=== PATIENT | male | born 1970 | race Caucasian/White ===

== ENCOUNTER 2016-11-07 12:10 | Emergency (ER) | payer BC, OTHER ==
[2016-11-07] MEDS ORDERED: Ibuprofen TAB* 600 MG PO ONE (13:41)
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
[2016-11-07 14:44] VITALS: BP 129/70
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
== END 2016-11-07 14:43 | disposition home or self-care (01) ==
LOC: ED 12:10
DX: S06.0X0A Concussion without loss of consciousness, initial encounter (principal); V43.52XA Car driver injured in collision with other type car in traffic accident, initial encounter; Y92.410 Unspecified street and highway as the place of occurrence of the external cause; E78.00 Pure hypercholesterolemia, unspecified; I38 Endocarditis, valve unspecified; I20.9 Angina pectoris, unspecified; F41.0 Panic disorder [episodic paroxysmal anxiety]; Z87.891 Personal history of nicotine dependence
CPT/HCPCS: 70450; 99282; A9270-GY

== ENCOUNTER 2018-05-18 22:25 | Inpatient (IN) | payer BC ==
--- NOTE | 2018-05-18 22:41 | ED ---
Substance Abuse/Use - HPI Summary HPI Summary: LEVEL 5 CAVEAT: HPI LIMITED DUE TO PATIENT CONDITION, EXTREMIS. A 47 y/o M presents to ED s/p suspected OD onset [employer]. Per EMS: On scene, pt was in prone position with emesis present and slow respirations; they gave him 2mg of Narcan which had minimal effect; another 2mg Narcan IV, and resp rate improved; respiratory rate crashed again en route; pupils are constricted; pt told EMS he took Demerol. Per father: patient appeared at baseline at 1630; at 1840, patient was speaking to father and not making sense but said he was going to sleep; at 1930, he found patient unresponsive on floor, it appeared that pt had vomited and had a bloody nose. Father says patient had been off opiods since 2008 and is on suboxone; he relapsed with cocaine 1.5 years ago; pt attends NA meetings 4x a week. Pt took a Klonopin pill today. At bedside, patient slurred that he is drunk and high otherwise, he is incoherent. PMHx includes aortic valve replacement in Nov 2017; sleep apnea; substance abuse. Neg DM. He sees Dr. Loyd, cardiology. ED provider met EMS and patient upon arrival and was taken to room 14. - History Of Current Complaint Stated Complaint: OVERDOSE PER EMS Hx Obtained From: Family/It Security Consulting Director - father, EMS, Medical Records Hx From Patient Unobtainable Due To: Extremis Associated Signs And Symptoms: Vomiting, Other: - pos: epistaxis - Allergies/Home Medications Allergies/Adverse Reactions: Allergies Allergy/AdvReac Type Severity Reaction Status Date / Time No Known Allergies Allergy Verified 06/25/17 10:11 PMH/Surg Hx/FS Hx/Imm Hx Previously Healthy: No Endocrine/Hematology History: Denies: Hx Diabetes Cardiovascular History: Reports: Hx Angina, Hx Hypercholesterolemia, Hx Valvular Heart Disease Denies: Hx Coronary Artery Disease, Hx Hypertension, Hx Myocardial Infarction , Hx Pacemaker/ICD Respiratory History: Denies: Hx Asthma, Hx Chronic Obstructive Pulmonary Disease (COPD) Sensory History: Denies: Hx Hearing Aid Psychiatric History: Reports: Hx Panic Disorder - ANXIETY STATES CAN HANDLE THE MRI Infectious Disease History: Reports: Hx Shingles - Family History Family History: multiple myeloma, diverticulosis - Social History Occupation: Unemployed Lives: With Family Alcohol Use: None Hx Substance Use: Yes Substance Use Type: Reports: Cocaine Hx Tobacco Use: Yes Smoking Status (MU): Former Smoker Type: Cigarettes Review of Systems - ROS Summary Review of Systems Summary: LEVEL 5 CAVEAT: HPI LIMITED DUE TO PATIENT CONDITION, EXTREMIS. Positive: Epistaxis Positive: Vomiting All Other Systems Reviewed And Are Negative: No Physical Exam - Summary Physical Exam Summary: Appearance: Somewhat agitated, Well-nourished, Mild respiratory distress. Skin: Warm, dry, no obvious rash Eyes: sclera anicteric, no conjunctival pallor, pupils are pinpoint ENT: mucous membranes moist, pharynx appears normal Neck: Supple, nontender Respiratory: Clear to auscultation, mild respiratory distress Cardiovascular: Normal S1, S2. No murmurs. Normal distal pulses in tibial and radial bilaterally. Abdomen: Soft, nontender, normal active bowel sounds present Musculoskeletal: Normal, Strength/ROM Intact Neurological: awake and alert but disoriented, mentation is normal, can follow simple commands. Inconsistent responses to questions. Otherwise no focal neuro deficits noted. Psychiatric: affect is normal, does not appear anxious or depressed Triage Information Reviewed: Yes Vital Signs Reviewed: Yes Diagnostics - Laboratory Result Diagrams: 05/18/18 22:38 05/18/18 22:38 Lab Statement: Any lab studies that have been ordered have been reviewed, and results considered in the medical decision making process. - Radiology CXR Radiology Interpretation Completed By: ED Physician Summary of Radiographic Findings: Status-post sternotomy, otherwise no acute findings. - CT Brain CT CT Interpretation Completed By: Radiologist Summary of CT Findings: IMPRESSION: 1. No acute intracranial abnormality. 2. Sinus mucosal disease. ED provider has reviewed this report. C-SPINE CT Interpretation Completed By: Radiologist Summary of CT Findings: IMPRESSION: 1. No acute findings. 2. Multilevel degenerative spondylosis, greatest at C5-6 level with mild spinal stenosis and mild bilateral neural foraminal narrowing. Moderate right neuroforamina narrowing at C6-7 level. ED provider has reviewed this report. - EKG 2257 Cardiac Rate: Tachycardia - 100 bpm EKG Rhythm: Sinus Tachycardia Summary of EKG Findings: Nonspecific IVCD; nonspecific T abnormalities in lateral leads Re-Evaluation - Re-Evaluation 1 Re-Evaluation Time: 00:07 Change: Unchanged Comment: Pt has some midline tenderness to neck will CT. GCS: 15. Course/Dx - Course Course Of Treatment: Pt is a 47 y/o M found unresponsive by father at 1930, suspected opiod OD, vomiting, epistaxis and poor respirations. Pt responded to 4mg Narcan given en route by EMS. Father says pt appeared at baseline at 1630. Soc Hx includes opiod abuse prior to 2008, on suboxone currently, prior cocaine use 1.5 years ago. Pt took a Klonopin pill today and told EMS he took Demerol. Aortic valve replacement in Nov 2017. Critical lab values: lactic acid: 7.9, troponin: 0.07. EKG shows Sinus tachy at 100bpm; Nonspecific IVCD; nonspecific T abnormalities in lateral leads. Consulted with Dr. Doll, hospitalist, who will admit patient. - Diagnoses Provider Diagnoses: Toxic encephalopathy, Opioid overdose - Critical Care Time Critical Care Time: 30-74 min Discharge - Sign-Out/Discharge Documenting (check all that apply): Patient Departure - ADMIT Patient Received Moderate/Deep Sedation with Procedure: No - Discharge Plan Condition: Critical Disposition: ADMITTED TO [facility] - Billing Disposition and Condition Condition: CRITICAL Disposition: Admitted to [facility] - Attestation Statements Document Initiated by Pardeepibe: Yes Documenting Scribe: Marycruz Simons Provider For Whom Scribe is Documenting (Include Credential): Dr. Fernando Posada MD Scribe Attestation: Marycruz Willis, scribed for Dr. Fernando Posada MD on 05/19/18 at 0546. Scribe Documentation Reviewed: Yes Provider Attestation: The documentation as recorded by the Marycruz tapia accurately reflects the service I personally performed and the decisions made by me, Dr. Fernando Posada MD Status of Scribe Document: Viewed
[2018-05-18] MEDS: NS 0.9% 1000 ML** 2,000 ML IV ONE ×4 (22:47→23:45)
[2018-05-18 23:01] LABS: Hematocrit 45 % (36-46); Hemoglobin 14.8 g/dL (14.0-18.0); Mean Corpuscular HGB Conc 33 g/dL (31-36); Mean Corpuscular Hemoglobin 30 pg (27-31); Mean Corpuscular Volume 89 fL (80-94); Mean Platelet Volume 8.4 fL (7.4-10.4); Platelet Count 180 10^3/uL (150-450); Red Blood Count 4.99 10^6 /uL (4.18-5.48); Red Cell Distribution Width 16 % (10.5-15); White Blood Count 24.5 10^3/uL (3.5-10.8)
[2018-05-18 23:16] LABS: Acetaminophen < 15 mcg/mL; Alcohol < 10 mg/dL (<10)
[2018-05-18 23:17] LABS: ALT 61 U/L (7-52); AST 56 U/L (13-39); Albumin 4.8 g/dL (3.2-5.2); Albumin/Globulin Ratio 1.8 (1-3); Alkaline Phosphatase 78 U/L (34-104); Anion Gap 19 mmol/L (2-11); BUN/Creatinine Ratio 8.8 (8-20); Blood Urea Nitrogen 18 mg/dL (6-24); CO2 Carbon Dioxide 21 mmol/L (22-32); Calcium 9.1 mg/dL (8.6-10.3); Chloride 102 mmol/L (101-111); EGFR African American 42.5 (>60); EGFR Non-African American 35.1 (>60); Globulin 2.7 g/dL (2-4); Glucose 312 mg/dL (70-100); Potassium 4.8 mmol/L (3.5-5.0); Sodium 142 mmol/L (135-145); Total Protein 7.5 g/dL (6.4-8.9)
[2018-05-18 23:21] LABS: Troponin I 0.07 ng/mL (<0.04)
[2018-05-18 23:24] LABS: Immature Granulocytes 12 % (0-9); Lymphocytes % 12 %; Monocytes % 6 %; Neutrophil % 70 %
[2018-05-18 23:27] LABS: ABS Neutrophils 20.1 10^3/ul (1.5-7.7)
--- OUTSIDE RECORDS SUMMARY | 2018-05-18 23:44 | XMS REPORT | Continuity of Care Document ---
:1970 External Reference #:[id number] Author Name Simpson Alicia Care Team Providers Name Role Phone Baldemar Brady MD Primary Care Physician Unavailable Payers Date Identification Numbers Payment Provider Subscriber Effective: 2013 Policy Number: [id number] BS Facets Derek Brooks PayID: [id number] [address] [address] [place] [address] Effective: 2015 Policy Number: [id number] Derek Brooks Onset: 2015 PayID: [id number] [address] [place] [address] Effective: 2012 Policy Number: [id number] BS [employer] Derek Brooks Expires: 2013 PayID: [id number] [address] [address] [place] [address] Advance Directives Type Date Description Status Comment Other Directive 11/18/2017 Living Will-Health Care Proxy Current and Verified Problems Date Description Provider Status Onset: 01/31/2013 Arthropathy Nicholas Dorado M.D. Active Onset: 03/22/2013 Aortic valve disorder Inocente Salvador M.D., [facility], Active FSCAI Onset: 11/13/2014 Congenital stenosis of aortic Inocente Salvador M.D., [facility], Active valve FSCAI Onset: 11/13/2014 Obesity Inocente Salvador M.D., [facility], Active [facility] Onset: 05/07/2015 Disturbance in sleep behavior Regina Mcgregor MD Active Onset: 10/23/2015 Palpitations Inocente Salvador M.D., [facility], Active FSCAI Onset: 12/10/2015 Obstructive sleep apnea syndrome Kaylee Hamm DNP, RN, Active [employer] Family History Date Family Member(s) Observation Comments General Cancer General Maternal uncle narcolepsy Mother No Current Problems Siblings 1 Sister healthy Social History Type Date Description Comments Sex Unknown Marital Status Single Lives With Father Occupation Not currently working [employer] Cigarette Use Quit 2 Years Ago 2015quite , is now vaping Tobacco Use Start: Unknown Uses e-cig w/o nicotine Smoking Status Reviewed: 05/09/18 Uses e-cig w/o nicotine ETOH Use Denies alcohol use Tobacco Use Start: Unknown Patient is a former End: Unknown smoker Recreational Drug Use Former Drug User Exercise Type/Frequency Exercises regularly Exercise Type/Frequency Walks 3 times a week Allergies, Adverse Reactions, Alerts Description No Known Drug Allergies Medications Medication Date Status Form Strength Qnty SIG Indications Ordering Provider Metoprolol 12/13/ Active Tablets 25mg 180ta 1 by mouth Vitor S. Tartrate 2017 bs twice a , day DO FACC Aspirin Adult Low 12/06/ Active Tablets DR 81mg 100ta 1 by mouth Vitor S. Dose 2017 bs every day Loyd, DO [facility] Zonisamide 03/26/ Active Capsules 100mg 180ca 2 caps by G43.119 Elias Barney 2016 ps mouth Taty, every M.D. night at bedtime Ritalin / Active Tablets 20mg 30tab 1 po tid Unknown 0000 s prn Prilosec / Active Capsules 20mg 90cap 1 po qd Unknown 0000 DR s Melatonin / Active Capsules 3mg 90cap 1 tabs qHS Unknown 0000 s Klonopin / Active 0.5mg up to 1 Unknown 0000 tablet po daily prn Levothyroxine / Active Tablets 50mcg 90tab 1 po qd Unknown Sodium 0000 s Ibuprofen 0000/ Active prn Unknown 0000 Maxalt 00/ Active Tablets 10mg 12tab prn for Unknown 0000 s migraines Benadryl Allergy / Active Tablets 25mg 2tabs 1-2 tabs Unknown 0000 by mouth @ hs Lexapro / Active Tablets 5mg 90tab 1 by mouth Unknown 0000 s every day Allopurinol 00/ Active Tablets 100mg 1 by mouth Unknown 0000 every day Aleve 00/ Active Capsules 220mg 2 tablets Unknown 0000 by mouth, to be taken with Maxalt for Migraines. Zonisamide 05/10/ Hx Capsules 50mg 90cap 3 caps by G43.119 Columba Duron 2014 - s mouth Stackman, 03/26/ every M.D. 2017 night as directed Depakote ER 05/10/ Hx Tablets ER 500mg 60tab 1-2 tabs 346.01 Columba Duron 2014 - 24HR s by mouth Stackman, 09/18/ at bedtime M.DKarthik 2014 Wellbutrin /00/ Hx 200mg daily Unknown 0000 - 2013 Ginkgo Biloba / Hx 240mg daily Unknown 0000 - 2013 Cyclobenzaprine / Hx Tablets 10mg 45tab one po tid Unknown HCL 0000 - s prn spasm 2014 Wellbutrin SR / Hx Tablets ER 150mg 60tab 1 po qd Unknown 0000 - 12HR s 2014 Allopurinol / Hx Tablets 100mg 14tab 1 po qd Unknown 0000 - s 2014 Suboxone / Hx Film 8-2mg 1 film po Unknown 0000 - daily 2013 Suboxone 0000/ Hx Film .25mg daily- Unknown 0000 - tapering 11/09/ off by 2017September 2017 Magnesium Citrate 00/ Hx Tablets 400mg 1 tablet Unknown 0000 - po at 12/09/ bedtime 2016 Magnesium Citrate 00/00/ Hx Tablets 400mg 1 by mouth Unknown 0000 - every day 2018 Clonidine HCL ER 00/ Hx Tablets ER 0.1mg take one Unknown 0000 - 12HR tablet 2017 evening Clonidine HCL /00/ Hx Tablets 0.1mg Unknown 0000 - 2018 Immunizations CPT Code Status Date Vaccine Lot # [id number] Given 05/07/2015 Fluvirin Im 3Yrs And Older [id number] Given 11/22/2013 Influenza Virus 3Yrs & Over Vital Signs Date Vital Result Comment 05/09/2018 3:47pm Height 72 inches 6'0" Weight 283.00 lb with out shoes Heart Rate 80 /min BP Systolic Sitting 124 mmHg rue lg cuff BP Diastolic Sitting 76 mmHg rue lg cuff BP Systolic Standing 128 mmHg rue lg cuff BP Diastolic Standing 80 mmHg rue lg cuff Respiratory Rate 16 /min O2 % BldC Oximetry 96 % at room air BMI (Body Mass Index) 38.4 kg/m2 Ejection Fraction 60-65% date 04/28/18 echo 12/13/2017 2:15pm Height 72 inches 6'0" Weight 274.00 lb Heart Rate 76 /min BP Systolic Sitting 112 mmHg lue lg cuff BP Diastolic Sitting 68 mmHg lue lg cuff BP Systolic Standing 120 mmHg BP Diastolic Standing 68 mmHg Respiratory Rate 16 /min BMI (Body Mass Index) 37.2 kg/m2 Ejection Fraction 60-65% 06/21/2017 echo 11/10/2017 2:14pm Height 72 inches 6'0" Weight 255.00 lb with shoes Heart Rate 68 /min BP Systolic Sitting 110 mmHg lue lg cuff BP Diastolic Sitting 68 mmHg lue lg cuff BP Systolic Standing 120 mmHg BP Diastolic Standing 74 mmHg Respiratory Rate 16 /min BMI (Body Mass Index) 34.6 kg/m2 Ejection Fraction 60-65% echo 08/18/2017 3:11pm Height 72 inches 6'0" Weight 260.00 lb Heart Rate 68 /min BP Systolic Sitting 138 mmHg BP Diastolic Sitting 82 mmHg Respiratory Rate 16 /min BMI (Body Mass Index) 35.3 kg/m2 06/28/2017 3:22pm Height 72 inches 6'0" Weight 260.00 lb w/ shoes Heart Rate 84 /min BP Systolic Sitting 132 mmHg lue lg cuff BP Diastolic Sitting 68 mmHg lue lg cuff BP Systolic Standing 122 mmHg lue lg cuff BP Diastolic Standing 62 mmHg lue lg cuff Respiratory Rate 18 /min BMI (Body Mass Index) 35.3 kg/m2 Ejection Fraction 60-65% echo 06/21/17 06/09/2017 2:24pm Height 72 inches 6'0" Weight 263.00 lb with shoes Heart Rate 70 /min BP Systolic Sitting 100 mmHg Lue lg cuff BP Diastolic Sitting 62 mmHg Lue lg cuff BP Systolic Standing 110 mmHg Lue lg cuff BP Diastolic Standing 64 mmHg Lue lg cuff BP Systolic Lying Down 122 mmHg lue lg cuff sitting BP Diastolic Lying Down 76 mmHg lue lg cuff sitting BP Systolic Recheck 118 mmHg lue lg cuff standing BP Diastolic Recheck 62 mmHg lue lg cuff standing Respiratory Rate 16 /min BMI (Body Mass Index) 35.7 kg/m2 Ejection Fraction 60-65% date 12/15/16 ECHO 12/22/2016 3:24pm Height 72 inches 6'0" Weight 264.00 lb w/ shoes Heart Rate 84 /min BP Systolic Sitting 110 mmHg rue large cuff BP Diastolic Sitting 64 mmHg rue large cuff BP Systolic Standing [address] lareg cuff BP Diastolic Standing 68 [address] lareg cuff Respiratory Rate 18 /min BMI (Body Mass Index) 35.8 kg/m2 Ejection Fraction 60-65% echo 12/15/16 12/10/2016 10:03am Height 72 inches 6'0" Weight 260.00 lb Heart Rate 72 /min BP Systolic Sitting 128 mmHg BP Diastolic Sitting 70 mmHg Respiratory Rate 16 /min BMI (Body Mass Index) 35.3 kg/m2 12/02/2016 1:55pm Height 72 inches 6'0" Weight 263.00 lb With shoes Heart Rate 80 /min BP Systolic Sitting 138 mmHg Rue large cuff BP Diastolic Sitting 80 mmHg Rue large cuff Respiratory Rate 14 /min O2 % BldC Oximetry 98 % On Ra BMI (Body Mass Index) 35.7 kg/m2 07/28/2016 10:08am Height 72 inches 6'0" Weight 267.00 lb Heart Rate 88 /min BP Systolic Sitting 100 mmHg BP Diastolic Sitting 68 mmHg Respiratory Rate 14 /min BMI (Body Mass Index) 36.2 kg/m2 06/09/2016 3:19pm Height 72 inches 6'0" Weight 271.00 lb w/ shoes Heart Rate 78 /min reg BP Systolic Sitting 108 mmHg Lue, lg cuff BP Diastolic Sitting 60 mmHg Lue, lg cuff BP Systolic Standing 110 mmHg Lue, lg cuff BP Diastolic Standing 64 mmHg Lue, lg cuff Respiratory Rate 16 /min BMI (Body Mass Index) 36.8 kg/m2 Ejection Fraction 60-65% as of 01/07 echo 05/13/2016 1:37pm Height 72 inches 6'0" Weight 270.00 lb Heart Rate 93 /min BP Systolic Sitting 120 mmHg BP Diastolic Sitting 60 mmHg Respiratory Rate 16 /min Pain Level 99 BMI (Body Mass Index) 36.6 kg/m2 04/27/2016 11:05am Height 72 inches 6'0" Weight 274.00 lb w/ shoes Heart Rate 96 /min reg BP Systolic Sitting 116 mmHg Rue, lg cuff BP Diastolic Sitting 60 mmHg Rue, lg cuff BP Systolic Standing 110 mmHg Rue BP Diastolic Standing 64 mmHg Rue Respiratory Rate 16 /min BMI (Body Mass Index) 37.2 kg/m2 Ejection Fraction 60-65% as of 12/2015 echo 04/01/2016 2:13pm Height 72 inches 6'0" Weight 265.00 lb Heart Rate 94 /min BP Systolic 122 mmHg BP Diastolic 84 mmHg Respiratory Rate 14 /min O2 % BldC Oximetry 97 % BMI (Body Mass Index) 35.9 kg/m2 03/26/2016 8:55am Height 72 inches 6'0" Weight 265.00 lb Heart Rate 96 /min BP Systolic Sitting 124 mmHg BP Diastolic Sitting 80 mmHg Respiratory Rate 18 /min BMI (Body Mass Index) 35.9 kg/m2 01/21/2016 1:03pm Height 72 inches 6'0" Weight 260.00 lb Heart Rate 94 /min BP Systolic Sitting 128 mmHg BP Diastolic Sitting 76 mmHg Respiratory Rate 16 /min O2 % BldC Oximetry 98 % BMI (Body Mass Index) 35.3 kg/m2 12/10/2015 1:08pm Height 72 inches 6'0" Weight 260.00 lb Heart Rate 75 /min BP Systolic Sitting 120 mmHg BP Diastolic Sitting 70 mmHg Respiratory Rate 16 /min O2 % BldC Oximetry 97 % BMI (Body Mass Index) 35.3 kg/m2 10/23/2015 3:07pm Height 72 inches 6'0" Weight 262.00 lb Heart Rate 68 /min 72 BP Systolic Sitting 118 mmHg left arm, reg cuff BP Diastolic Sitting 74 mmHg left arm, reg cuff BP Systolic Standing 116 mmHg left arm, reg cuff BP Diastolic Standing 72 mmHg left arm, reg cuff Respiratory Rate 20 /min BMI (Body Mass Index) 35.5 kg/m2 Ejection Fraction 60-65% 10/23/14 09/17/2015 11:42am Height 72 inches 6'0" Weight 267.00 lb Heart Rate 100 /min BP Systolic 128 mmHg BP Diastolic 88 mmHg Respiratory Rate 14 /min O2 % BldC Oximetry 97 % BMI (Body Mass Index) 36.2 kg/m2 05/07/2015 1:16pm Height 72 inches 6'0" Weight 267.50 lb w/shoes and clothes on Heart Rate 71 /min BP Systolic Sitting 116 mmHg BP Diastolic Sitting 56 mmHg Respiratory Rate 18 /min O2 % BldC Oximetry 98 % BMI (Body Mass Index) 36.3 kg/m2 Neck Circumference in inches 19 05/02/2015 1:13pm Height 70.5 inches 5'10.50" Weight 262.00 lb Heart Rate 82 /min 94 BP Systolic Sitting 116 mmHg right arm, reg cuff BP Diastolic Sitting 82 mmHg right arm, reg cuff BP Systolic Standing 112 mmHg right arm, reg cuff BP Diastolic Standing 82 mmHg right arm, reg cuff Respiratory Rate 16 /min BMI (Body Mass Index) 37.1 kg/m2 Ejection Fraction 60-65% 10/23/14 11/13/2014 2:47pm Height 70.5 inches 5'10.50" Weight 267.00 lb without shoes Heart Rate 70 /min 72 sit and stand BP Systolic Sitting 120 mmHg LA lg cuff BP Diastolic Sitting 70 mmHg LA lg cuff BP Systolic Standing 120 mmHg LA lg cuff BP Diastolic Standing 74 mmHg LA lg cuff Respiratory Rate 17 /min BMI (Body Mass Index) 37.8 kg/m2 09/19/2014 1:28pm Height 70.5 inches 5'10.50" Weight 269.00 lb Heart Rate 82 /min 84 BP Systolic Sitting 128 mmHg left arm, reg cuff BP Diastolic Sitting 78 mmHg left arm, reg cuff BP Systolic Standing 126 mmHg left arm, reg cuff BP Diastolic Standing 76 mmHg left arm, reg cuff BMI (Body Mass Index) 38.0 kg/m2 Ejection Fraction 60-65% 01/02/14 05/10/2014 9:08am Height 70.5 inches 5'10.50" Weight 268.00 lb Heart Rate 64 /min BP Systolic Sitting 118 mmHg BP Diastolic Sitting 70 mmHg Respiratory Rate 16 /min BMI (Body Mass Index) 37.9 kg/m2 01/05/2014 2:39pm Height 70.5 inches 5'10.50" Weight 254.00 lb Heart Rate 76 /min 78 BP Systolic Sitting 124 mmHg left arm, large cuff BP Diastolic Sitting 80 mmHg left arm, large cuff BP Systolic Standing 114 mmHg left arm, large cuff BP Diastolic Standing 76 mmHg left arm, large cuff Respiratory Rate 16 /min BMI (Body Mass Index) 35.9 kg/m2 03/22/2013 2:51pm Height 70.5 inches 5'10.50" Weight 264.00 lb Heart Rate 8490 /min BP Systolic Sitting 122 mmHg right arm, large cuff BP Diastolic Sitting 84 mmHg right arm, large cuff BP Systolic Standing 110 mmHg right arm, large cuff BP Diastolic Standing 82 mmHg right arm, large cuff Respiratory Rate 16 /min BMI (Body Mass Index) 37.3 kg/m2 Results Description No Information Available Procedures Date Code Description Status 04/28/2018 26391 ECHO Transthoracic, Real-Time 2D With Doppler And Color Completed Flow 04/28/2018 90509 ECHO Transthoracic, Real-Time 2D With Doppler And Color Completed Flow 12/13/2017 64490 EKG Tracing & Interpretation Completed 11/10/2017 80266 EKG Tracing & Interpretation Completed 06/21/2017 56934 ECHO Transthorasic Realtime 2D W Doppler & Color Flow Hosp Completed 12/15/2016 84620 ECHO Transthorasic Realtime 2D W Doppler & Color Flow Hosp Completed 06/02/2016 52055 Treadmill Interp/Report Only Completed 06/02/2016 87194 Stress Test Supervsn W/Out I/R Completed 04/27/2016 32996 EKG Tracing & Interpretation Completed 12/25/2015 30852 ECHO Transthoracic, Real-Time 2D With Doppler And Color Completed Flow 11/04/2015 10863 Polysomnography Sleep Staging 4+ Parameters W/Cpap Completed 09/04/2015 53622 Polysomnography Sleep Staging 4+ Parameters Completed 05/02/2015 52449 EKG Tracing & Interpretation Completed 04/02/2015 86820 EEG Recording Awake & Drowsy Completed 03/29/2015 03312 Holter Monitoring 24 HR New Completed 10/30/2014 45332 Treadmill Interp/Report Only Completed 10/30/2014 00466 Stress Test Supervsn W/Out I/R Completed 10/23/2014 57176 ECHO Transthorasic Realtime 2D W Doppler & Color Flow Hosp Completed 09/19/2014 61607 EKG Tracing & Interpretation Completed 01/05/2014 09894 EKG Tracing & Interpretation Completed 01/02/2014 46160 ECHO Transthoracic, Real-Time 2D With Doppler And Color Completed Flow 03/22/2013 33855 EKG Tracing & Interpretation Completed 09/06/2012 03470 EKG Tracing & Interpretation Completed 09/02/2012 56778 ECHO Transthoracic, Real-Time 2D With Doppler And Color Completed Flow Encounters Type Date Location Provider Dx Diagnosis Office Visit 12/13/2017 [facility] Vitor Barney 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, aortic valve FSCAI disorders Office Visit 06/09/2017 [facility] Inocente Salvador, I35.0 Nonrheumatic aortic 2:40p [facility], (valve) stenosis FSCAI R06.02 Shortness of breath Office Visit 12/22/2016 3:00p [place] Inocente Salvador, I35.8 Other nonrheumatic Cardiology Of Jeff, [facility], aortic valve [facility]SC[facility] disorders Office Visit 12/10/2016 9:45a Shea Duron G43.009 Migraine w/o aura, Neurologic Rufino, not intractable, Services Of Parisa Aguilar w/o status migrainosus F41.9 Anxiety disorder, unspecified Office Visit 12/02/2016 [facility] Kaylee G47.33 Obstructive sleep 1:45p Sleep Services Of FATIMAH Hamm RN, apnea (adult) [facility] [employer] (pediatric) E66.9 Obesity, unspecified Z68.35 Body mass index (BMI) 35.0-35.9, adult Office Visit 07/28/2016 Shea Duron G43.009 Migraine w/o aura, 10:00a Vignesh Joy M.D. not intractable, [facility] w/o status migrainosus F41.9 Anxiety disorder, unspecified Office Visit 06/09/2016 [facility] Inocente Salvador, I35.0 Nonrheumatic 3:20p [facility], aortic (valve) FSCAI stenosis Office Visit 05/13/2016 [facility] And Kaylee G47.33 Obstructive sleep 1:30p Sleep Services Of FATIMAH Hamm RN, apnea (adult) [facility] [employer] (pediatric) G47.10 Hypersomnia, unspecified G47.63 Sleep related bruxism E66.9 Obesity, unspecified Z68.35 Body mass index (BMI) 35.0-35.9, adult Office Visit 04/27/2016 [facility] Inocente Salvador, I35.0 Nonrheumatic 11:20a Of [facility] AT [facility], [facility], aortic (valve) FSCAI stenosis Office Visit 04/01/2016 [facility] Kaylee G47.33 Obstructive sleep 2:00p Sleep Services Of FATIMAH Hamm RN, apnea (adult) [facility] [employer] (pediatric) F41.9 Anxiety disorder, unspecified G47.63 Sleep related bruxism Office Visit 03/26/2016 [facility] Columba AdanKarthik G43.009 Migraine w/o 8:45a Services [facility] Jeff Joy aura, not intractable, w/o status migrainosus Office Visit 01/21/2016 [facility] And Kaylee G47.33 Obstructive sleep 1:00p Sleep Services Of FATIMAH Hamm RN, apnea (adult) [facility] [employer] (pediatric) E66.9 Obesity, unspecified Z68.35 Body mass index (BMI) 35.0-35.9, adult Office Visit 12/10/2015 [facility] Kaylee G47.33 Obstructive sleep 1:00p Sleep Services Of FATIMAH Hamm RN, apnea (adult) [facility] [employer] (pediatric) G47.10 Hypersomnia, unspecified G47.61 Periodic limb movement disorder Office Visit 10/23/2015 3:20p [facility] Inocente Salvador, I35.0 Nonrheumatic Of [facility] AT [facility], [facility], aortic (valve) FSCAI stenosis R00.2 Palpitations Office Visit 09/17/2015 Pulmon[facility] And Kaylee G47.33 Obstructive sleep 11:30a Sleep Services Of FATIMAH Hamm RN, apnea (adult) [facility] [employer] (pediatric) G47.10 Hypersomnia, unspecified Office Visit 05/07/2015 1:00p Pulmonology And Regina G47.9 Sleep disorder, Sleep Services Of MD Meche unspecified [employer] E66.09 Other obesity due to excess calories Office Visit 05/02/2015 1:20p [facility] Inocente Salvador, I35.0 Nonrheumatic Of [employer] AT [facility], FACC, aortic (valve) FSCAI stenosis Office Visit 11/13/2014 3:00p [facility] Inocente Salvador, I35.9 Nonrheumatic [facility] Jeff, FACC, aortic valve FSCAI disorder, unspecified E66.9 Obesity, unspecified Office Visit 09/19/2014 1:20p [facility] Inocente Salvador, 424.1 Aortic Valve [facility] F[facility], Disorder FSCAI Office Visit 05/10/2014 9:00a [place] [facility] Columba Duron 346.01 Migraine Services [facility] Jeff Joy W/Aura/Intractab le Migrain W/O Men Status Migrainos 311 Depressive Disorder Not Elsewhere Spec 300.00 Anxiety State Unspec Office Visit 01/05/2014 2:20p [facility] Inocente Salvador, 424.1 Aortic Valve Of [facility] Jeff, FACC, Disorder FSCAI Office Visit 03/22/2013 2:30p [facility] Inocente Salvador, 424.1 Aortic Valve Of [facility] Jeff, FACC, Disorder FSCAI Office Visit 09/06/2012 1:00p [facility] Inocente Salvador, 424.1 Aortic Valve Of [facility] Jeff, FACC, Disorder FSCAI 746.4 Aortic Valve Insufficiency Congenital Office Visit 04/13/2012 2:30p Orthopedic Nicholas Dorado, 716.[address] [facility] Plan of Treatment Future Appointment(s):08/30/2018 11:00 am - Elias Posey M.D. at [place] [facility]05/09/2018 - Vitor Loyd DO FACCZ95.2 Presence of prosthetic heart valveFollow up:1 yearI71.2 Thoracic aortic aneurysm, without rupture
--- OUTSIDE RECORDS SUMMARY | 2018-05-18 23:45 | XMS REPORT | Continuity of Care Document ---
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 CALC High 0.0-4.4 Lipid Profile 09/19/2013 Felton Sheir ([facility]) Cholesterol 229 mg/dL High 120-200 Triglycerides 302 mg/dL High 30-200 HDL Cholesterol 33 mg/dL 30-70 LDL (Calculated) 136 CALC High 0-129 VLDL Cholesterol 60 mg/dL High 0-50 HDL Risk Factor 6.9 CALC High 0.0-4.4 Laboratory test 09/19/2013 Felton Sheri ([facility]) LDL, Direct 149 mg/dL High 0-130 finding Laboratory test 09/07/2013 [facility] Quickstrep neg Negative finding (607)- - Throat - Beta Strep Fma negative@48hrs Hep C Abs 05/17/2013 [facility] Hep C NON-REACTIVE Non-Reactive [address] [place] [address] [phone] Hep C S/Co Ratio 0.1 0.0-0.7 Laboratory 05/17/2013 [facility] Hep B Surface NON-REACTIVE Non-Reactive test finding [address] [place] [address] [phone] Lipid 05/17/2013 Jose Francisco Wade ([facility]) Cholesterol 214 mg/dL High 120-200 Profile Triglycerides 647 mg/dL High 30-200 HDL Cholesterol 33 mg/dL 30-70 LDL (Calculated) 52 CALC 0-129 VLDL Cholesterol 129 mg/dL High 0-50 HDL Risk Factor 6.5 CALC High 0.0-4.4 Comprehensive Metabolic 05/17/2013 Jose Francisco Wade ([facility]) Sodium 141 mEq/L 134-149 Prof Potassium 4.1 mEq/L 3.6-5.5 Chloride 96 mEq/L 94-112 Carbon Dioxide 30 mEq/L 21-32 Glucose 101 mg/dL 70-105 BUN 11 mg/dL 6-26 Creatinine 1.2 mg/dL 0.6-1.4 BUN/Creat Ratio 9.2 CALC 8.0-36.0 Calcium 9.0 mg/dL 8.6-10.2 Total Protein 7.5 g/dL 6.3-8.1 Albumin 4.6 g/dL 3.8-5.5 Globulin 2.9 g/dL 2.0-4.8 A/G Ratio 1.6 CALC 0.6-2.3 Alk. Phosphatase 91 U/L 22-95 Alt (SGPT) 101 U/L High 10-40 21 Ast (Sgot) 66 U/L High 5-34 22 Total Bilirubin 0.7 mg/dL 0.2-1.3 Laboratory test finding 05/17/2013 Jose Francisco Wade (a) TSH 3.24 mIU/L 0.50-6.00 23 LDL, Direct 54 mg/dL 0-130 Complete Blood Count 05/17/2013 Jose Francisco Wade (a) WBC 7.4 x10^3/UL 3.6-9.6 RBC 4.26 x10^6/UL 3.90-5.70 HGB 13.4 g/dL 12.1-17.2 HCT 39 % 36-50 MCV 92.0 fL 82.2-97.4 MCH 31.5 pg 27.6-33.3 MCHC 34.3 g/dL 33.0-35.5 RDW 12.0 % 11.6-13.7 PLT 105 x10^3/UL Low 150-400 24 MPV 8.0 fL 7.4-10.4 Gran # 4.2 x10^3/UL 1.5-7.2 Lymph# 2.8 x10^3/UL 0.7-4.9 Noble# 0.4 x10^3/UL 0.1-0.9 Gran % 56.4 % 42.2-75.2 Lymph % 37.7 % 20.5-51.1 Noble% 5.9 % 1.7-9.3 Oncology CBC Auto Diff 02/01/2013 [facility] White Blood Count 5.8 10^3/uL 4.8- 10.8 Red Blood Count 4.62 10^6/uL 4.0-5.4 Hemoglobin 14.3 g/dL 14.0-18.0 Hematocrit 42 % 42-52 Mean Corpuscular Volume 91 fL 80-94 Mean Corpuscular Hemoglobin 31 pg 27-31 Mean Corpuscular HGB Conc 34 g/dL 31-36 Red Cell Distribution Width 12 % 10.5-15 Platelet Count 92 10^3/uL Low 150-450 25 Mean Platelet Volume 9 um3 7.4-10.4 Abs Neutrophils 2.2 10^3/uL 1.5-7.7 Abs Lymphocytes 3.0 10^3/uL 1.0-4.8 Abs Monocytes 0.5 10^3/uL 0-0.8 Abs Eosinophils 0.1 10^3/uL 0-0.6 Abs Basophils 0 10^3/uL 0-0.2 Granulocyte % 38.2 % 38-83 Lymphocyte % 50.5 % High 25-47 Monocyte % 8.5 % 1-9 Eosinophil % 2.2 % 0-6 Basophil % 0.6 % 0-2 Uric Acid 24 01/10/2013 [facility] Uric Acid, 533.2 mg/24hrs 250.0-750.0 26 HR Urine [address] 24 [place] [address] [phone] Total Volume, 24 Hour 6200 ml/24hrs CBC Electronic (Fma) 01/09/2013 [facility] Medicine WBC 5.9 3.6-9.6 (607)- - RBC 4.48 3.90-5.70 Hemoglobin (Fma/CMC/CTX) 14.0 g/dL 12.1 - 17.2 Hematocrit (Fma/CMC/CTX) 41.0 % 36.1 - 50.3 Platelets 124 10^3/ul Low 150-400 Lymph% 48.7 20.5-51.1 Mixed% 5.7 Neutrophils % 45.6 Mean Corpuscular Vol 92 82.2-97.4 Mean Corpuscular Hemoglobin 31.2 27.6-33.3 Mean Corpuscular Hemo Concen 34.1 32.0-36.0 RDW 11.2 Low 11.6-13.7 Mean Platelet Volume 7.6 6.5-11.0 Laboratory test finding 01/09/2013 Jose Francisco Wade ([facility]) TSH 1.06 mIU/L 0.50-6.00 27 Free T4 0.71 ng/dL Low 0.75-1.54 28 Comprehensive Metabolic 01/09/2013 Jose Francisco Wade ([facility]) Albumin 4.6 g/dL 3.8-5.5 Prof Alk. Phos. 74 U/L 22-95 Alt (SGPT) 61 U/L High 10-40 Ast (Sgot) 40 U/L High 5-34 BUN 11 mg/dL 6-26 Calcium 9.4 mg/dL 8.6-10.2 Chloride 103 mEq/L 94-112 Creatinine 1.1 mg/dL 0.6-1.4 Carbon Dioxide 27 mEq/L 21-32 Glucose 105 mg/dL 70-105 Sodium 142 mEq/L 134-149 Total Bilirubin 0.5 mg/dL 0.2-1.3 Total Protein 6.9 g/dL 6.3-8.1 Potassium 4.3 mEq/L 3.6-5.5 Globulin 2.4 g/dL 2.0-4.8 A/G Ratio 1.9 Calc 0.6-2.3 BUN/Creat Ratio 10.4 Calc 8.0-36.0 Lipid Profile 01/09/2013 Jose Francisco Wade ([facility]) Cholesterol 191 mg/dL 120- 200 HDL 25 mg/dL Low 30-70 29 Triglycerides 688 mg/dL High 30-200 HDL Risk Factor 7.7 CALC High 0.0-4.4 LDL (Calculated) 29 CALC 0-129 VLDL (Calculated) 138 mg/dL High 0-50 Laboratory test 01/09/2013 Felton Sheri (a) Uric Acid 6.7 mg/dL 2.5- 9.2 finding LDL (Direct) 51 mg/dL 0-130 Oncology CBC Auto Diff 12/25/2011 [facility] White Blood Count 6.7 10^3/uL 4.8- 10.8 Red Blood Count 4.78 10^6/uL 4.0-5.4 Hemoglobin 14.8 g/dL 14.0-18.0 Hematocrit 43 % 42-52 Mean Corpuscular Volume 90 fL 80-94 Mean Corpuscular Hemoglobin 31 pg 27-31 Mean Corpuscular HGB Conc 34 g/dL 31-36 Red Cell Distribution Width 12 % 10.5-15 Platelet Count 92 10^3/uL Low 150-450 30 Mean Platelet Volume 9 um3 7.4-10.4 Abs Neutrophils 3.5 10^3/uL 1.5-7.7 Abs Lymphocytes 2.6 10^3/uL 1.0-4.8 Abs Monocytes 0.4 10^3/uL 0-0.8 Abs Eosinophils 0.2 10^3/uL 0-0.6 Abs Basophils 0 10^3/uL 0-0.2 Granulocyte % 52.0 % 38-83 Lymphocyte % 38.8 % 25-47 Monocyte % 6.4 % 1-9 Eosinophil % 2.5 % 0-6 Basophil % 0.3 % 0-2 CBC Electronic ([facility]) 12/14/2011 [facility] WBC 7.3 3.6-9.6 (607)- - RBC 4.93 3.90-5.70 Hemoglobin (Fma/CMC/CTX) 15.1 g/dL 12.1 - 17.2 Hematocrit (a/CMC/CTX) 43.6 % 36.1 - 50.3 Platelets 152 10^3/ul 150-400 Lymph% 40.9 20.5-51.1 Mixed% 5.6 Neutrophils % 53.5 Mean Corpuscular Vol 88 82.2-97.4 Mean Corpuscular Hemoglobin 30.6 27.6-33.3 Mean Corpuscular Hemo Concen 34.6 32.0-36.0 RDW 11.3 Low 11.6-13.7 Mean Platelet Volume 7.4 6.5-11.0 Comprehensive Metabolic 12/14/2011 Jose Francisco Sheri ([facility]) Albumin 4.6 g/dL 3.8-5.5 Prof Alk. Phos. 83 U/L 22-95 Alt (SGPT) 38 U/L 10-40 Ast (Sgot) 24 U/L 5-34 31 BUN 12 mg/dL 6-26 Calcium 9.0 mg/dL 8.6-10.2 Chloride 105 mEq/L 94-112 Creatinine 1.1 mg/dL 0.6-1.4 Carbon Dioxide 25 mEq/L 21-32 Glucose 106 mg/dL High 70-105 32 Sodium 141 mEq/L 134-149 Total Bilirubin 0.2 mg/dL 0.2-1.3 Total Protein 8.0 g/dL 6.3-8.1 Potassium 4.3 mEq/L 3.6-5.5 Globulin 3.4 g/dL 2.0-4.8 A/G Ratio 1.4 Calc 0.6-2.2 BUN/Creat Ratio 10.5 Calc 8.0-36.0 Laboratory test finding 12/14/2011 Jose Francisco Wade (a) TSH 3.09 mIU/L 0.50-6.00 Free T4 0.63 ng/dL Low 0.75-1.54 33 CBC Auto Diff 06/23/2011 [facility] White Blood Count 6.3 CUMM 4.8-10.8 Red Cell Count 4.34 CUMM Low 4.6-6.2 Hemoglobin 13.8 g/dL Low 14.0-18.0 Hematocrit 38 % Low 42-52 Mean Corpuscular Volume 89 um3 80-94 Mean Corpuscular Hemoglob 32 pg High 27-31 Mean Corpuscular HGB Cone 36 g/dL 32-36 Redcell Distribution WDTH 13 % 10.5-15 Platelet Count 72 CUMM Low 150-450 Mean Platelet Volume 9.6 um3 7.4-10.4 Gran % 48.8 % 38-83 Lymph % 41.6 % 25-47 Mononuclear % 6.3 % 1-9 Eosinophil % 2.1 % 0-6 Basophil % 1.2 % 0-2 Abs Lymphs 2.6 1.0-4.8 Abs Mononuclear 0.4 0-0.8 Absolute Neutrophil Count 3.1 1.5-7.7 Abs Eosinophils 0.1 0-0.6 Abs Basophils 0.1 0-0.2 34 Lipid Profile 06/04/2011 Felton Flora ([facility]) Cholesterol 211 mg/dL High 120-200 HDL 35 mg/dL 30-70 Triglycerides 328 mg/dL High 30-200 HDL Risk Factor 6.1 CALC High 0.0-4.0 LDL (Calculated) 111 CALC 0-129 VLDL (Calculated) 66 mg/dL High 0-50 Laboratory test 06/04/2011 Felton Sheri ([facility]) LDL (Direct) 116 mg/dL 0 -130 finding Laboratory test 06/04/2011 Felton Sheri ([facility]) Free T4 0.78 ng/dL 0.75- 1.54 finding TSH 7.03 mIU/L High 0.50-6.00 35 CBC Electronic ([facility]) 06/04/2011 [facility] WBC 7.4 3.6-9.6 (607)- - RBC 4.65 3.90-5.70 Hemoglobin (Fma/CMC/CTX) 14.1 g/dL 12.1 - 17.2 Hematocrit (Fma/CMC/CTX) 41.9 % 36.1 - 50.3 Platelets 98 10^3/ul Low 150-400 Lymph% 40.8 20.5-51.1 Mixed% 5.6 Neutrophils % 53.6 Mean Corpuscular Vol 90 82.2-97.4 Mean Corpuscular Hemoglobin 30.4 27.6-33.3 Mean Corpuscular Hemo Concen 33.7 32.0-36.0 RDW 12.1 11.6-13.7 Mean Platelet Volume 8.9 6.5-11.0 Comprehensive Metabolic 06/04/2011 Jose Francisco Sheri ([facility]) Albumin 4.9 g/dL 3.8-5.5 Prof Alk. Phos. 79 U/L 22-95 Alt (SGPT) 88 U/L High 10-40 Ast (Sgot) 50 U/L High 5-34 BUN 19 mg/dL 6-26 Calcium 8.9 mg/dL 8.6-10.2 Chloride 98 mEq/L 94-112 Creatinine 1.1 mg/dL 0.6-1.4 Carbon Dioxide 24 mEq/L 21-32 Glucose 83 mg/dL 70-105 Sodium 137 mEq/L 134-149 Total Bilirubin 0.7 mg/dL 0.2-1.3 Total Protein 7.4 g/dL 6.3-8.1 Potassium 3.9 mEq/L 3.6-5.5 Globulin 2.5 g/dL 2.0-4.8 A/G Ratio 1.9 Calc 0.6-2.2 BUN/Creat Ratio 16.9 Calc 8.0-36.0 CBC Auto Diff 03/09/2011 [facility] White Blood Count 9.3 CUMM 4.8-10.8 Red Cell Count 4.62 CUMM 4.6-6.2 Hemoglobin 14.3 g/dL 14.0-18.0 Hematocrit 42 % 42-52 Mean Corpuscular Volume 91 um3 80-94 Mean Corpuscular Hemoglob 31 pg 27-31 Mean Corpuscular HGB Cone 34 g/dL 32-36 Redcell Distribution WDTH 12 % 10.5-15 Platelet Count 115 CUMM Low 150-450 Mean Platelet Volume 8.5 um3 7.4-10.4 Manual Differential 03/09/2011 [facility] Polysegmented Neutrophil 59 % 38-83 Band Neutrophil 4 % 0-8 Lymphocyte 24 % Low 25-47 Monocyte 10 % 0-13 Eosinophil 1 % 0-6 Basophil 1 % 0-2 Atypical Lymph 1 % 0-6 Absolute Neutrophil Count 5.8 Anisocytosis SLIGHT Platelet Evaluation DECREASED Laboratory test finding 03/09/2011 [facility] Vitamin B12 399 pg/mL 180-914 TSH 7.30 MIU/ML High 0.34-5.60 Protein Electrophoresis Serum 03/09/2011 [facility] Albumin 3.72 GM/DL 3.0- 4.35 Alpha 1 0.25 GM/DL 0.09-0.33 Alpha 2 0.93 GM/DL 0.59-1.18 Beta 1.04 GM/DL High 0.68-1.02 Gamma 0.96 GM/DL 0.76-1.60 Albumin % 53.9 % 46-63 Alpha 1 % 3.6 % 1.2-5.3 Alpha 2 % 13.5 % 9-17 Beta % 15.1 % 10-16 Gamma % 13.9 % 12-22 A/G Ratio 1.2 0.9-2 Total Protein 6.9 GM/DL 6.2-8.1 Spep Comments (SEE NOTE) 36 Wound Culture 01/23/2011 [facility] .Gram Stain RARE EPI, NO [address] Additional WBC <[place] [address] NOTE> [phone] Wound Culture Staphylococcus a <SEE NOTE> 38 Laboratory test finding 01/07/2011 [facility] Throat - Beta Strep negative (607)- - [facility] Quickstrep negative Negative CBC Electronic ([facility]) 01/02/2011 [facility] WBC 5.7 3.6-9.6 (607)- - RBC 4.46 3.90-5.70 Hemoglobin (Fma/CMC/CTX) 14.1 g/dL 12.1 - 17.2 Hematocrit (Fma/CMC/CTX) 40.5 % 36.1 - 50.3 Platelets 114 10^3/ul Low 150-400 39 Lymph% 48.1 20.5-51.1 Mixed% 9.0 Neutrophils % 42.9 Mean Corpuscular Vol 91 82.2-97.4 Mean Corpuscular Hemoglobin 31.5 27.6-33.3 Mean Corpuscular Hemo Concen 34.7 32.0-36.0 RDW 11.8 11.6-13.7 Mean Platelet Volume 8.6 6.5-11.0 Laboratory test 11/03/2010 [facility] Clotest NEGATIVE finding Surgical Pathology 11/03/2010 [facility] Surgical 40 Pathology -- <SEE NOTE> Comprehensive 10/16/2010 Felton Sheri (a) Albumin 4.6 g/dL 3.8-5. Metabolic Prof 5 Alk. Phos. 81 U/L 22-95 Alt (SGPT) 73 U/L High 10-40 Ast (Sgot) 42 U/L High 5-34 BUN 14 mg/dL 6-26 Calcium 8.7 mg/dL 8.6-10.2 Chloride 106 mEq/L 94-112 Creatinine 1.0 mg/dL 0.6-1.4 Carbon Dioxide 29 mEq/L 21-32 Glucose 93 mg/dL 70-105 Sodium 136 mEq/L 134-149 Total Bilirubin 0.4 mg/dL 0.2-1.3 Total Protein 7.0 g/dL 6.3-8.1 Potassium 4.1 mEq/L 3.6-5.5 Globulin 2.3 g/dL 2.0-4.8 A/G Ratio 2.0 Calc 0.6-2.2 BUN/Creat Ratio 14.1 Calc 8.0-36.0 Lipid Profile 10/16/2010 Jose Francisco Wade ([facility]) Cholesterol 154 mg/dL 120- 200 HDL 30 mg/dL 30-70 Triglycerides 253 mg/dL High 30-200 HDL Risk Factor 5.1 CALC High 0.0-4.0 LDL (Calculated) 74 CALC 0-129 VLDL (Calculated) 51 mg/dL High 0-50 Laboratory test finding 10/16/2010 Jose Francisco Wade ([facility]) TSH 5.41 mIU/L 0.50-6.00 Free T4 0.85 ng/dL 0.75-1.54 LDL (Direct) 84 mg/dL 0-130 CBC Electronic ([facility]) 10/16/2010 [facility] WBC 6.0 3.6-9.6 (607)- - RBC 4.21 3.90-5.70 Hemoglobin (Fma/CMC/CTX) 13.2 g/dL 12.1 - 17.2 Hematocrit (Fma/CMC/CTX) 37.6 % 36.1 - 50.3 Platelets 80 10^3/ul Low 150-400 41 Lymph% 42.5 20.5-51.1 Mixed% 8.9 Neutrophils % 48.6 Mean Corpuscular Vol 89 82.2-97.4 Mean Corpuscular Hemoglobin 31.2 27.6-33.3 Mean Corpuscular Hemo Concen 35.0 32.0-36.0 RDW 12.3 11.6-13.7 Mean Platelet Volume 8.8 6.5-11.0 1 RESULTS VERIFIED BY REPEAT ANALYSIS 2 consistent w/ previous results 3 SEE RESULT BELOW Name: GRECIA RODRIGUEZ : [address]: Donaldo Haas MD Acct: [id number] Unit: [id number] AGE: 46 Location: ENDO Re06/25/17 SEX: M Status: REG REF SPEC: [id number] RADHA: 06/25/17- SUBM DR: Donaldo Haas MD REQ: [id number] RECD: 06/25/17 STATUS: ELAYNE LUCIANO DR: Baldemar Brady MD _ ORDERED: LEVEL 4 FINAL DIAGNOSIS Gastroesophageal junction, biopsy: -- Gastroesophageal transition zone mucosa with mild reflux esophagitis. -- No goblet cell/intestinal metaplasia or dysplasia identified. 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 normal GROSS DESCRIPTION The specimen is received in formalin labeled, Biopsies Gastroesophageal Junction, and consists of two alarcon-pink irregular to polypoid soft tissue fragments measuring 0.7 x 0.2 x 0.1 cm and 0.7 x 0.3 by up to 0.2 cm which are entirely submitted in one cassette. Signed by and Reported on: Dick Galeana MD 09/08 1055 END OF REPORT DEPARTMENT OF PATHOLOGY, [address] [place] [address] Dick Galeana M.D. Director [facility] # [id number] 4 SEE RESULT BELOW Name: GRECIA RODRIGUEZ : [address]: Yanely Hatch NP Acct: [id number] Unit: [id number] AGE: 46 Location: [facility] Re03/05/17 SEX: M Status: REG REF SPEC: [id number] RADHA: 03/05/17-[address]: Yanely Hatch [employer] REQ: [id number] RECD: 03/05/17 STATUS: COMP _ SOURCE: SERUM SPDESC: ORDERED: Viral Cult [place] COMMENTS: Verbal to KORIN KAPOOR by [id number] at 1132 on 03/15/17. Results read back accurately. FOR MUMPS Procedure Result Reported Site Viral Culture NYSDTX Final 04/02/17- 1401 ML Mumps IgG ELFA Suggests prior exposure and immunity to Mumps, or a convalescent stage of infection [id number] collected 03/05/17 Result: Positive Mumps IgG and IgM IFA: Please see the Mumps IFA report note. [Note] Mumps IgM result is nonreactive. Interpretation should be made in context with the IgG result. Mumps IgM IFA* Analyte Mumps IgM IFA Titer Result [id number] collected 03/05/17: <8 (Negative) Reference Range <8 NOTE: Mumps IgM result is nonreactive. Interpretation should be made in context with the IgG result. *The performance characteristics of this test were determined by the [facility]. It has not been cleared or approved by the U.S. Food and Drug Administration. CONTINUED ON NEXT PAGE * ML=Testing performed at Main Lab DEPARTMENT OF PATHOLOGY, [address] [place] [address] Dick Galeana M.D. Director [facility] # [id number] Patient: GRECIA RODRIGUEZ [id number] (Continued) Specimen: [id number] Collected: 03/05/17-114 Received: 03/05/17-1841 (Continued) Procedure Result Reported Site Viral Culture JOSEMARGOTTX Final (continued) 04/02/17- 1401 Test Performed by: [address] [address] * ML - MAIN LAB ([facility]) . END OF REPORT * ML=Testing performed at Main Lab DEPARTMENT OF PATHOLOGY, [address] [place] [address] Dick Galeana M.D. Director [facility] # [id number] 5 SEE RESULT BELOW Name: GRECIA RODRIGUEZ : [address]: Yanely Hatch NP Acct: [id number] Unit: [id number] AGE: 46 Location: [facility] Re03/05/17 SEX: M Status: REG REF SPEC: [id number] RADHA: 03/05/17-1149 [facility] DR: Yanely Hatch [employer] REQ: [id number] RECD: 03/05/17 STATUS: COMP _ SOURCE: [facility]: ORDERED: Viral Cult [facility] COMMENTS: BUCCAL SWAB FOR MUMPS Procedure Result Reported Site Viral Culture [facility] Final 03/15/17- 1127 ML Mumps RNA by real-time RT-PCR*: Not Detected The [facility] designed and validated the RT-PCR method(s) used for the detection of the specific viral nucleic acid indicated. The assay was additionally validated by the [facility] Virology Laboratory * The performance characteristics of this test were determined by the [facility]. It has not been cleared or approved by the U.S. Food and Drug Administration. Test Performed by: [facility] [place] [address] * ML - [facility] ([facility]) . END OF REPORT * ML=Testing performed at Main Lab DEPARTMENT OF PATHOLOGY, [address] [place] [address] Dick Galeana M.D. Director [facility] # [id number] 6 Test Performed by: [place] [address] 7 Results suggest response to immunization or prior exposure to the virus. REFERENCE VALUE Vaccinated: Positive (>=1.1 AI) Unvaccinated: Negative (<=0.8 AI) 8 Test Performed by: [place] [address] 9 RESULTS VERIFIED BY REPEAT ANALYSIS 10 RESULTS VERIFIED BY REPEAT ANALYSIS 11 1 sst 12 consistent w/ previous results 13 SEE RESULT BELOW Name: GRECIA RODRIGUEZ : [address]: Roderick Arguelles MD Acct: [id number] Unit: [id number] AGE: 44 Location: [facility] Re11/02/14 SEX: M Status: REG REF SPEC: [id number] RADHA: 11/02/14 [facility] DR: Roderick Arguelles MD REQ: [id number] RECD: 11/02/14 STATUS: ELAYNE LUCIANO DR: Krystal Brady MD _ ORDERED: LEVEL IV FINAL DIAGNOSIS Skin, right cheek, excision: -- Scar, excised. -- No evidence of residual squamous cell carcinoma in situ. COMMENT: The previous lesion at this site has been completely excised. CLINICAL HISTORY See [id number] - Right cheek shave - At least surface of squamous cell carcinoma in situ; extending to the tissue edge. PRE-OPERATIVE DIAGNOSIS Squamous cell carcinoma suture coon 12 o'clock superior medial apex margin. GROSS DESCRIPTION The specimen is received in formalin labeled, Excision Squamous Cell Carcinoma Right Cheek, Suture Coon 12:00 Superior Medial [place] Margin, and consists of a 2.1 x 0.9 cm alarcon-swartz skin ellipse excised to a depth of 0.5 cm with a central 0.4 x 0.4 cm faint swartz area. There is a suture attached to one long axis, which designates the 12:00 superior medial apex margin. The specimen is inked as follows: 9:00 half black, 3:00 half blue and 12:00 tip green, serially sectioned from 12:00 to 6:00 and entirely submitted in cassettes A and B to include ellipse ends in cassette A. Signed (signature on file) Brianna Kramer MD 1058 END OF REPORT * ML=Testing performed at Main Lab DEPARTMENT OF PATHOLOGY, [facility] [address], [place] [address] Dick Galeana M.D. Director [facility] # [id number] 14 consistent w/ previous results 15 RUN DATE: 04/30/14 [facility] LAB LIVE PAGE 1 RUN TIME: [address] [facility] [address] [place], [place] [address] Specimen Inquiry Name: GRECIA RODRIGUEZ : [address]: Donaldo Haas MD Acct: [id number] Unit: [id number] AGE: 43 Location: ENDO Re04/27/14 SEX: M Status: REG REF SPEC: [id number] RADHA: 04/27/140845 [facility] DR: Donaldo Haas MD REQ: [id number] RECD: 04/27/14 STATUS: ELAYNE LUCIANO DR: Baldemar Brady MD _ ORDERED: LEVEL IV FINAL DIAGNOSIS Gastroesophageal junction, biopsy: -- Gastroesophageal junction mucosa with mild reflux esophagitis. -- Goblet cell/intestinal metaplasia present. -- No dysplasia identified. CLINICAL HISTORY No clinical information provided POST-OPERATIVE DIAGNOSIS Esophagus - Seth's, biopsied; stomach - gastritis, biopsied; duodenum - normal. Seth's GROSS DESCRIPTION The specimen is received in formalin labeled, Biopsy GE Junction, and consists of two alarcon-pink irregular soft tissue fragments measuring 0.3 x 0.2 x 0.1 cm and 0.5 x 0.2 x 0.1 cm, which are submitted entirely in one cassette. Signed (signature on file) Dick Galeana MD 1300 END OF REPORT * ML=Testing performed at Main Lab DEPARTMENT OF PATHOLOGY, [facility] [address], [place] [address] Dick Galeana M.D. Director [facility] # [id number] 16 RUN DATE: 04/28/14 [facility] LAB LIVE PAGE 1 RUN TIME: [address] [facility] [address] [place], [place] [address] Specimen Inquiry Name: GRECIA RODRIGUEZ : [address]: Donaldo Haas MD Acct: [id number] Unit: [id number] AGE: 43 Location: ENDO Re04/27/14 SEX: M Status: REG REF SPEC: [id number] RADHA: 04/27/14 [facility] DR: Donaldo Haas MD REQ: [id number] RECD: 04/27/14 STATUS: COMP OTHR DR: Baldemar Brady MD _ SOURCE: [facility]: ORDERED: Clotest Procedure Result Verified Site Clotest Final 04/28/14832 L Clotest Negative END OF REPORT * ML=Testing performed at Main Lab DEPARTMENT OF PATHOLOGY, [address] [place] [address] Dick Galeana M.D. Director [facility] # [id number] RESULTS VERIFIED BY REPEAT ANALYSIS 18 consistent w/ previous results 19 consistent w/ previous results 20 1SST 21 RESULTS VERIFIED BY REPEAT ANALYSIS 22 RESULTS VERIFIED BY REPEAT ANALYSIS 23 FASTING 24 RESULTS VERIFIED BY REPEAT ANALYSIS 25 Consistent with previous results. 26 URINE ALIQUOT IN STERILE CUP; TOTAL VOLUME: 6200ml 27 SPECIMEN MARKEDLY LIPEMIC 28 RESULT HOSEA'D 29 RESULT HOSEA'D 30 Platelet count confirmed by smear estimate. 31 confirmed by dilution 32 result hosea'd 33 RESULT HOSEA'D 34 Thrombocytopenia 35 RESULT HOSEA'D 36 INCREASED BETA GLOBULIN- CONSISTENT WITH HYPERLIPO- PROTEINEMIA OR IRON DEFICIENCY. 37 RARE EPI, NO WBC, FEW GRAM POS COCCI, 38 Staphylococcus aureus Predominating WOUND CULTURE organism 1 Staphylococcus aureus Predominating Quinupristin/Dalfopristin <=0.25 Susceptible Moxifloxacin <=0.25 Susceptible Clindamycin <=0.25 Susceptible Erythromycin <=0.25 Susceptible Gentamicin <=0.5 Susceptible Levofloxacin <=0.12 Susceptible Oxacillin <=0.25 Susceptible Penicillin-G <=0.03 Resistant Tetracycline <=1 Susceptible Trimethoprim/Sulfa <=10 Susceptible Vancomycin <=0.5 Susceptible 39 RESULTS HOSEA'D AND CONSISTENT WITH PREVIOUS RESULT 40 ---- RUN DATE: 11/05/10 [facility] NMI LIVE PAGE 1 RUN TIME: 1324 Specimen Inquiry RUN USER: INTERFACE -- Name: GRECIA RODRIGUEZ Accclaire#: [id number] Status: REG REF Re11/03/10 Age/Sex: 40/M Unit#: [id number] Location: [facility] : 71 -- Specimen: [id number] Spec Date: 11/03/[address]: Donaldo kumar MD Spec Type: SURGICAL P Received: 11/04/10-1010 Copies to: Baldemra Brady MD SPECIMEN GASTROESOPHAGEAL JUNCTION BIOPSY HISTORY POST-OP DIAGNOSIS: Esophagus - Seth's biopsy. Stomach normal, duodenum normal. CLINICAL INFORMATION: Dysphagia. Reflux disease. GROSS DESCRIPTION The specimen is received in formalin labelled Grecia Rodriguez, GE Junction Biopsy, and consists of one fragment of yellow tissue measuring 0.3 x 0.2 x 0.2 cm. Submitted entirely, one cassette. DIAGNOSIS GE junction, biopsy: A. Cardia type mucosa with focal intestinal metaplasia and reactive changes. B. No evidence of dysplasia. Signed Electronically by: SHIVANI BANKS 11/05/10 1324 -- -- DEPARTMENT OF PATHOLOGY, [address] [place] [address] [facility] Permit #[id number] Dick Galeana M.D. Director Shivani Banks M.D. [employer] marika -- 41 platelets moderately decreased on smear. Procedures Date Code Description Status 05/02/2018 41417 Remove Impact Cerumen Irrigati Completed 10/18/2017 66428 Remove Impact Cerumen Irrigati Completed 12/17/2014 45092 Remove Impacted Cerumen Completed Encounters Type Date Location Provider Dx Diagnosis Office Visit 05/02/2018 Main Office Yoselin Muñoz H61.22 Impacted cerumen, 12:30p BRENT Alex left ear Office Visit 12/16/2017 Main Office Baldemar Brady, I35.8 Other nonrheumatic 11:00a M.D. aortic valve disorders Office Visit 10/18/2017 Main Office Yoselin Muñoz H61.22 Impacted cerumen, 1:30p BRENT Alex left ear G43.909 Migraine, unsp, not intractable, without status migrainosus Office Visit 08/05/2017 8:40a Main Office Baldemar Brady, I35.8 Other nonrheumatic M.D. aortic valve disorders D69.6 Thrombocytopenia, unspecified E78.4 Other hyperlipidemia R23.8 Other skin changes N40.0 Benign prostatic hyperplasia without lower urinry tract symp Z23 Encounter for immunization E78.1 Pure hyperglyceridemia Office Visit 03/05/2017 10:15a [facility] Office Yanely Joya R59.0 Localized Holden, [employer] enlarged lymph nodes J06.9 Acute upper respiratory infection, unspecified Z11.4 Encounter for screening for human immunodeficiency virus Office Visit 02/04/2017 11:00a Main Office Baldemar Brady, F32.89 Other specified M.D. 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 aortic valve disorders D69.6 Thrombocytopenia, unspecified G43.009 Migraine w/o aura, not intractable, w/o status migrainosus F32.89 Other specified depressive episodes R23.8 Other skin changes N40.0 Benign prostatic hyperplasia without lower urinry tract symp K22.70 Seth's esophagus without dysplasia Z00.00 Encntr for general adult medical exam w/o abnormal findings E78.1 Pure hyperglyceridemia Office Visit 04/14/2016 11:20a Main Office Baldemar Brady, G47.09 Other insomnia M.D. Office Visit 04/02/2016 10:00a Main Office Brianna K21.9 Gastro- esophageal Gen, P[employer] P[employer]ER reflux disease without esophagitis F34.1 Dysthymic disorder F41.9 Anxiety disorder, unspecified Office Visit 12/17/2014 1:30p Main Office EDIE Jordan H90.0 Conductive hearing loss, bilateral H61.23 Impacted cerumen, bilateral Office Visit 09/27/2014 8:20a Main Office Baldemar Brady, 424.1 Aortic Valve M.D. Disorder 287.5 Thrombocytopenia Unspec 272.2 Hyperlipidemia Mixed 346.10 Migraine Common W/O Intractable 530.81 Esophageal Reflux 272.1 Hypertriglyceridemia Pure Office Visit 06/28/2014 2:40p Main Office Baldemar Brady, 346.10 Migraine Common M.D. W/O Intractable 424.1 Aortic Valve Disorder 311 Depressive Disorder Not Elsewhere Spec 287.5 Thrombocytopenia Unspec Office Visit 03/22/2014 8:20a Main Office Baldemar Brady, 346.10 Migraine Common M.D. W/O Intractable 424.1 Aortic Valve Disorder 311 Depressive Disorder Not Elsewhere Spec 272.2 Hyperlipidemia Mixed 287.5 Thrombocytopenia Unspec 274.9 Gout Unspec 530.81 Esophageal Reflux Office 12/25/2013 Suresh Mcqueen V04.81 Need For Prophylactic Visit 3:40p Office Jose Antonio, Vaccination & M.D. Inoculation/Influenza 346.10 Migraine Common W/O Intractable 424.1 Aortic Valve Disorder 311 Depressive Disorder Not Elsewhere Spec Office Visit 09/14/2013 8:40a Main Office Baldemar Mcqueen 272.2 Hyperlipidemia Mixed Jeff Brady 424.1 Aortic Valve Disorder 311 Depressive Disorder Not Elsewhere Spec 287.5 Thrombocytopenia Unspec V05.3 Viral Hepatitis Vaccination & Inoculation Office Visit 09/07/2013 1:30p Main Office Sammi Garcia, 462 Pharyngitis Acute [employer] Office Visit 03/16/2013 9:00a Main Office Baldemar Mcqueen 244.9 Hypothyroidism Other Jeff Brady Unspec 424.1 Aortic Valve Disorder 311 Depressive Disorder Not Elsewhere Spec 287.5 Thrombocytopenia Unspec 272.2 Hyperlipidemia Mixed 272.1 Hypertriglyceridemia Pure Office Visit 12/27/2012 3:40p Main Office Baldemar Mcqueen 287.5 Thrombocytopenia Jeff Brady Unspec 244.9 Hypothyroidism Other Unspec 311 Depressive Disorder Not Elsewhere Spec 424.1 Aortic Valve Disorder 274.9 Gout Unspec 782.9 Skin & Integumentary Tissue Other Symptoms V76.41 Screening Malignant Neoplasm Rectum v04.81 Need For Prophylactic Vaccination & Inoculation/Influenza 272.1 Hypertriglyceridemia Pure Office Visit 03/18/2012 1:00p [facility] Baldemar Mcqueen 719.46 Pain Joint Lower Jeff Brady Leg Office Visit 12/04/2011 9:40a [facility] Baldemar Mcqueen 311 Depressive Jeff Brady Disorder Not Elsewhere Spec 287.5 Thrombocytopenia Unspec 424.1 Aortic Valve Disorder 244.9 Hypothyroidism Other Unspec v04.81 Need For Prophylactic Vaccination & Inoculation/Influenza v06.5 Tetanus Diphtheria (DT) Office Visit 06/04/2011 8:20a Main Office Baldemar Brady, 311 Depressive Disorder M.DKarthik Not Elsewhere Spec 287.5 Thrombocytopenia Unspec 424.1 Aortic Valve Disorder 354.0 Carpal Tunnel Syndrome 782.9 Skin & Integumentary Tissue Other Symptoms V76.41 Screening Malignant Neoplasm Rectum 272.1 Hypertriglyceridemia Pure Office Visit 02/03/2011 2:00p Main Office Baldemar Brady, 311 Depressive Disorder M.DKarthik Not Elsewhere Spec 287.5 Thrombocytopenia Unspec 424.1 Aortic Valve Disorder 354.0 Carpal Tunnel Syndrome Office Visit 01/23/2011 4:00p [facility] Nora Martins 682.9 Cellulitis & Jeff Crenshaw Abscess Unspec Site Office Visit 01/07/2011 8:30p Main Office Kasia 462 Pharyngitis [facility] Office Visit 10/03/2010 1:00p [facility] Baldemar Brady M.D. Disorder Not Elsewhere Spec 314.00 Attention Deficit Disorder W/O Mention Of Hyperactivity 785.2 Murmur Cardiac Undiagnosed Office Visit 07/11/2010 1:00p [facility] Office Baldemar Brady M.D. Disorder Not Elsewhere Spec 314.00 Attention Deficit Disorder W/O Mention Of Hyperactivity Plan of Treatment Future Appointment(s):06/16/2018 8:20 am - Baldemar Brady M.D. at [facility]/02/2018 - Yoselin Alex, NPH61.22 Impacted cerumen, left earComments:Warm water irrigation successful. Patient tolerated well. Discussed not to use Q tips, rather use a wash cloth around outside of ears. Avoid excessive use of headphones that enter ear canal, if using for long time use over ear type. Debrox as needed for excessive ear wax.AllComments:~B_~U_ Medication Management~b_~u_ Patient Understands medications he 's taking? Yes No Are there Barriers to Adherence? Yes No Has the patient been asked about herbal supplements and therapies, and OTC meds? Yes No ~B_~U_Care Plan~b_~u_1. Patient has been queried about patient's goals/ preferences and functional/lifestyle goals at relevant visits. If relevant, describe: na2. Treatment goals as explained to the patient: above3. Are there barriers to meeting treatment goals? Yes No If Yes, please describe:4. Self-Management goals as described to the patient:Yes NoAs always, we strongly encourage a healthy diet and making physical activity a part of your every day life. If you have questions about how or where to start, please contact the office.Follow up:Please schedule a full annual visit at your earliest convenience Last appointment with : 11/2017
[2018-05-18 23:52] LABS: Rapid HIV 1 Nonreactive (Nonreactive)
[2018-05-19] MEDS ORDERED: Acetaminophen TAB* 325 MG PO PRN (00:07)
[2018-05-19] MEDS ORDERED: PROCHLORPERAZINE INJ 5 MG/ML 2 ML VIAL IV PRN (00:07)
[2018-05-19] MEDS ORDERED: Lactated Ringers 1000 ML Bag* 1,000 ML IV.FLUID IV ONE (00:20)
[2018-05-19] MEDS ORDERED: Piperacillin/Tazobac ADVAN(*) 3.375 GM in NS 0.9% 100 ML* 100 ML IVPB ONE (00:20)
[2018-05-19] MEDS: Lactated Ringers 1000 ML Bag* 1,000 ML IV SCH ×2 (00:53→08:29)
[2018-05-19] MEDS ORDERED: Zosyn per Pharmacy* NOTE FOLLOW UP SCH (01:00)
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
[2018-05-19 04:23] LABS: Troponin I 0.16 ng/mL (<0.04)
--- NOTE | 2018-05-19 05:08 | PN ---
Hospitalist Progress Note Date of Service: 05/19/18 HOSPITALIST ADDENDUM Laboratory Tests 05/19/18 05/19/18 03:42 03:42 Lactic Acid 1.1 Troponin I 0.16 H* Labs reviewed. Patient is chest pain free - will continue to trend troponin.
[2018-05-19] MEDS: ZOSYN 3.375 GM Q8H per EXTENDED INFUSION IVPB SCH ×6 (05:22→21:41)
[2018-05-19 05:47] LABS: Urine Appearance Cloudy; Urine Bacteria Absent (Absent); Urine Bilirubin Negative (Negative); Urine Blood Negative (Negative); Urine Color Yellow; Urine Glucose 1+(50 mg/dL) (Negative); Urine Ketones Negative (Negative); Urine Nitrite Negative (Negative); Urine Protein 1+(30 mg/dL) (Negative); Urine Red Blood Cell 1+(3-5/hpf) (Absent); Urine Specific Gravity 1.018 (1.010-1.030); Urine Squamous Epithelial Cell Present (Absent); Urine Urobilinogen Negative (Negative); Urine White Blood Cell 1+(6-10/hpf) (Absent)
[2018-05-19 05:58] LABS: Barbiturates Urine Screen None Detected (None Detect); Benzodiazepine Urine Screen Presumptive Positive (None Detect); Urine Cannabinoids Screen None Detected (None Detect)
[2018-05-19 06:36] LABS: Hematocrit 39 % (36-46); Hemoglobin 13.1 g/dL (14.0-18.0); Mean Corpuscular HGB Conc 34 g/dL (31-36); Mean Corpuscular Hemoglobin 30 pg (27-31); Mean Corpuscular Volume 88 fL (80-94); Mean Platelet Volume 8.1 fL (7.4-10.4); Platelet Count 102 10^3/uL (150-450); Red Blood Count 4.42 10^6 /uL (4.18-5.48); Red Cell Distribution Width 16 % (10.5-15); White Blood Count 8.7 10^3/uL (3.5-10.8)
--- NOTE | 2018-05-19 06:48 | PN ---
Sepsis Event Evaluation Date of Evaluation: 05/19/18 Time of Evaluation: 06:00 Current Stage of Sepsis: Severe Sepsis Vital Signs - Last 12 Hours: Vital Signs - 12 hr Temp Pulse Resp BP Pulse Ox 05/19/18 06:15 89 12 144/102 98 05/19/18 06:00 12 05/19/18 05:45 93 12 120/88 93 05/19/18 05:31 99 9 121/69 95 05/19/18 05:21 103 17 142/70 94 05/19/18 05:01 95 17 119/106 70 05/19/18 05:00 14 05/19/18 04:30 94 16 107/74 90 05/19/18 04:15 94 11 122/89 100 05/19/18 04:00 91 11 127/100 100 05/19/18 03:30 95 14 128/100 99 05/19/18 03:15 95 12 130/91 99 05/19/18 03:00 93 12 132/84 99 05/19/18 02:45 95 9 123/89 98 05/19/18 02:30 94 10 130/95 98 05/19/18 02:15 95 10 123/82 98 05/19/18 02:00 94 12 119/97 100 05/19/18 01:47 99 F 98 16 106/89 95 05/19/18 01:45 93 14 136/82 99 05/19/18 01:43 98.4 F 89 12 130/82 100 05/19/18 01:33 98 106/89 95 05/19/18 01:06 94 13 121/98 94 05/19/18 01:00 94 11 97 05/19/18 00:36 94 13 125/95 98 05/19/18 00:18 96 18 96 05/19/18 00:00 97 19 99 05/18/18 23:56 95 15 119/76 99 05/18/18 23:27 96 12 116/86 96 05/18/18 23:00 99 13 98 05/18/18 22:57 100 17 93/68 96 05/18/18 22:56 100 14 94 05/18/18 22:27 97 F 105 20 107/70 89 Lactic Acid: 05/18/18 05/19/18 22:38 03:42 Lactic Acid 7.9 H* 1.1 - Cardiopulmonary Exam Capillary Refill: Immediate Respiratory: Symmetrical Chest Expansion and Respiratory Effort, Clear to Auscultation Cardiovascular: RRR - Normal S1 and S2 - Peripheral Pulse Exam Radial Pulses: Bilateral Normal Pedal Pulses: Bilateral Normal Posterior Tibial Pulse: Bilateral Normal Femoral Pulses: Bilateral Normal Popliteal Pulses: Bilateral Normal - Skin Exam Skin Exam: Normal Turgor - Sultan Coma Scale Best Eye Response: 4 - Spontaneous Best Motor Response: 6 - Obeys Commands Best Verbal Response: 5 - Oriented Coma Scale Total: 15 Assess/Plan/Problems-Billing Assessment: Much more awake and oriented now. States he took Klonopin and Xanax, but doesn' t know how much. Denies using any cocaine. Suspect his leukocytosis and lactic acidosis were secondary to his OD and possible seizure. May have aspiration pneumonitis, but not severe sepsis. Will continue Zosyn.
[2018-05-19 06:53] LABS: BUN/Creatinine Ratio 11.9 (8-20); Calcium 7.8 mg/dL (8.6-10.3); EGFR African American 68.8 (>60); EGFR Non-African American 56.9 (>60); Potassium 4.1 mmol/L (3.5-5.0)
[2018-05-19 06:54] LABS: ABS Basophils 0 10^3/ul (0-0.2); ABS Eosinophils 0 10^3/ul (0-0.6); ABS Lymphocytes 0.5 10^3/ul (1.0-4.8); ABS Monocytes 0.5 10^3/ul (0-0.8); ABS Neutrophils 7.8 10^3/ul (1.5-7.7); ABS Nucleated RBC 0 10^3/ul; Eosinophil % 0 %; Lymphocyte % 5.2 %; Nucleated Red Blood Cells % 0
[2018-05-19 07:00] LABS: Troponin I 0.16 ng/mL (<0.04)
[2018-05-19 08:21] LABS: Magnesium 1.7 mg/dL (1.9-2.7)
[2018-05-19 09:41] LABS: Hepatitis B Surface Antigen Nonreactive (Nonreactive)
[2018-05-19] MEDS ORDERED: Magnesium Sulfate 2 GM IV* 2 GM/50 ML BAG IVPB ONE (09:44)
[2018-05-19 10:07] LABS: Hepatitis C Antibody Nonreactive (Nonreactive)
[2018-05-19 10:44] LABS: TSH (Thyroid Stimulating Horm) 0.86 mcIU/mL (0.34-5.60)
[2018-05-19 10:55] LABS: Troponin I 0.09 ng/mL (<0.04)
[2018-05-19] MEDS ORDERED: Perflutren Lipid Microsphere* 3 ML VIAL ONE (12:39)
[2018-05-19 12:49] LABS: Hepatitis B Surface AB Not Immune (Immune)
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
--- NOTE | 2018-05-19 14:30 | ECHO ---
Patient: GRECIA RODRIGUEZ [facility] Rec#: [id number] : 1970 Date: 05/19/2018 Age: 47y Height: 183 cm / 72.0 in Weight: 138.3 kg / 304.8 lbs Sex: M BSA: 2.55 Room#: ICU 6 Admit Date#: 05/19/2018 Type: Inpatient Referring: Lin Rucker Reading: Vitor Loyd DO Door Technician: Jovita De Anda RN RDCS CC: Baldemar Brady MD Transthoracic Echocardiogram Indication: Elevated troponin levels, sepsis BP: 118/74 HR: 92 Rhythm: NSR Findings History: Obesity, YARIEL, HLD, bovine AVR for bicuspid aortic valve with aortic stenosis, drug abuse in the past. Technical Comments: The study is technically limited due to poor acoustic windows. The study is technically limited due to patient body habitus. Left Ventricle: The left ventricular chamber size is normal. Mild to moderate concentric left ventricular hypertrophy is observed. Global left ventricular wall motion and contractility are within normal limits. There is normal left ventricular systolic function. The estimated ejection fraction is 60-65%. The assessment of diastolic function is non-diagnostic. Left Atrium: The left atrium is slightly dilated. Right Ventricle: The right ventricle is not well visualized. The right ventricular cavity size is normal. The right ventricular global systolic function is mildly reduced. Right Atrium: The right atrium is mildly dilated. Aortic Valve: The aortic valve structure is not well visualized. There is no evidence of aortic regurgitation. The mean gradient of the aortic valve is 18 mmHg. peak velocity 2.64 m/s. Dimensionless index 0.54. Acceleration time 90 msec. Echo from 04/28/18 dimensionless index was 0.62 with peak velocity/mean gradient of 1.8 m/s and 6.5 mmHg respectively. A bovine bio-prosthetic aortic valve is present. The bio-prosthetic aortic valve appears to be functioning normally. Mitral Valve: The mitral valve leaflets are mildly thickened. There is a trace of mitral regurgitation. There is no evidence of mitral stenosis. Tricuspid Valve: The tricuspid valve leaflets are normal. There is trace to mild tricuspid regurgitation. Unable to estimate the right ventricular systolic pressure. There is no tricuspid stenosis. Pulmonic Valve: The pulmonic valve structure is not well visualized. There is a trace pulmonic regurgitation. There is no pulmonic stenosis. Pericardium: There is no significant pericardial effusion. Aorta: There is mild dilatation of the ascending aorta. The aortic arch is not well visualized. The aortic root is normal in size. Pulmonary Artery: The main pulmonary artery is not well visualized. Venous: The venous system is not well visualized. The inferior vena cava is not visualized. Contrast: Definity was used to optimize study. A total of 4 ml of diluted Definity was given IV to enhance endocardial border definition. Conclusions The left ventricular chamber size is normal. Mild to moderate concentric left ventricular hypertrophy is observed. Global left ventricular wall motion and contractility are within normal limits. There is normal left ventricular systolic function. The estimated ejection fraction is 60-65%. The right ventricle is not well visualized. The right ventricular cavity size is normal. The right ventricular global systolic function is mildly reduced. The bio-prosthetic aortic valve that is not well visualized appears to be functioning normally. There is mild dilatation of the ascending aorta. Compared to prior study from 04/2018, no clinically significant changes noted. Measurements Name Value Normal Range RVDdMajor (2D) 4 cm (2.2 - 4.4) RAd ISD 4CH 5.7 cm (3.4 - 4.9) RA (A4C)W 4.5 cm (2.9 - 4.6) IVSd (2D) 1.3 cm (0.6 - 1) LVPWd (2D) 1.3 cm (0.6 - 1) LVIDd (2D) 5.1 cm (3.6 - 5.4) LVIDs (2D) 3.6 cm - LV FS (2D) 29 % (25 - 45) Aortic Annulus 2.3 cm (1.4 - 2.6) Ao root diameter (2D) 3.5 cm (2.1 - 3.5) Ascending Ao 3.6 cm (2.1 - 3.4) LA dimension (AP) 2D 4.1 cm (2.3 - 3.8) LAd ISD 4CH 5.4 cm (2.9 - 5.3) LA ISD 4CH W 4.3 cm (2.5 - 4.5) Name Value Normal Range LA ESV BP (A/L) index 29.5 ml/m2 - Name Value Normal Range MV E-wave Vmax 1.2 m/sec - MV deceleration time 225 msec - MV A-wave Vmax 1.2 m/sec - MV E:A ratio 1 ratio - LV septal e' Vmax 0.08 m/sec - LV lateral e' Vmax 0.11 m/sec - LV E:e' septal ratio 15 ratio - LV E:e' lateral ratio 10.9 ratio - Name Value Normal Range AV Vmax 2.6 m/sec - AV VTI 53.3 cm - AV peak gradient 28 mmHg - AV mean gradient 18 mmHg - LVOT diameter 2.2 cm - LVOT Vmax 1.4 m/sec - LVOT VTI 28.7 cm - LVOT peak gradient 8 mmHg - LVOT mean gradient 5 mmHg - DOI (VTI) 0.54 ratio - DOI (Vmax) 0.54 ratio - RALPH (continuity Vmax) 2 cm2 - RALPH (continuity VTI) 2 cm2 - Name Value Normal Range PV Vmax 1 m/sec -
[2018-05-19] MEDS ORDERED: clonazePAM TAB(*) 0.5 MG PO PRN (17:49)
[2018-05-19] MEDS ORDERED: RIZATRIPTAN 10 MG PO PRN (17:49)
[2018-05-19] MEDS: NS 0.9% 1000 ML** 1,000 ML IV SCH (18:11)
[2018-05-19] MEDS ORDERED: Pantoprazole TAB * 40 MG TAB PO ONE ×2 (18:20)
[2018-05-19] MEDS ORDERED: Pantoprazole TAB * 40 MG TAB ONE (18:22)
--- NOTE | 2018-05-19 20:05 | PN ---
Subjective Date of Service: 05/19/18 Interval History: Patient initially seen in ICU room 6. Patient awake, alert, and oriented. Eating breakfast and father at bedside. Patient reports he recalls lying down last evening in bed around 1930 and then recalls waking up in ICU. Reports he was having a severe migraine (which is common for him) so he took an extra Klonipin and Xanax. Patient denies cp, sob, palpitations, nausea, vomiting, fever, chills, weakness , visual changes, headache, and suicidal ideation. Objective Active Medications: Acetaminophen (Tylenol Tab*) 650 mg PO Q6H PRN PRN Reason: pain/fever Allopurinol (Zyloprim Tab*) 100 mg PO DAILY [facility] Aspirin (Aspirin Ec Tab*) 81 mg PO DAILY [facility] Clonazepam (Klonopin Tab(*)) 0.5 mg PO DAILY PRN PRN Reason: ANXIETY Escitalopram Oxalate (Lexapro *) 5 mg PO DAILY [facility]; Protocol Piperacillin Sod/Tazobactam (Sod 3.375 gm/ Sodium Chloride) 100 mls @ 25 mls/ hr IVPB Q8H [facility] Last Admin: 05/19/18 13:27 Dose: 25 mls/hr Sodium Chloride (Ns 0.9% 1000 Ml) 1,000 mls @ 150 mls/hr IV .PER RATE [facility] Last Admin: 05/19/18 18:11 Dose: 150 mls/hr Levothyroxine Sodium (Synthroid Tab*) 50 mcg PO DAILY@0600 [facility] Melatonin (Melatonin) 3 mg PO BEDTIME [facility] Methylphenidate HCl (Ritalin Tab*) 20 mg PO TID [facility] Pantoprazole Sodium (Protonix Tab*) 40 mg PO DAILY [facility] Pharmacy Consult (Zosyn Per Pharmacy*) 1 note FOLLOW UP .ZOSYN PER PHARMACY [facility] Prochlorperazine Edisylate (Compazine Inj*) 5 mg IV Q6H PRN PRN Reason: NAUSEA/VOMITING Rizatriptan Benzoate (Maxalt-Pre [employer] Technical Consultant (Nf)) 10 mg PO .SEE INSTRUCTIONS PRN; Protocol PRN Reason: MIGRAINE HEADACHE Zonisamide (Zonegran (Nf)) 200 mg PO BEDTIME [facility] Vital Signs - 8 hr 05/19/18 05/19/18 05/19/18 12:00 13:00 14:00 Temperature Pulse Rate 88 104 Respiratory 17 17 18 Rate O2 Sat by Pulse 97 95 Oximetry 05/19/18 05/19/18 05/19/18 15:00 16:00 16:01 Temperature 100.6 F Pulse Rate 92 90 Respiratory 24 14 16 Rate O2 Sat by Pulse 94 90 Oximetry Oxygen Devices in Use Now: None Appearance: Comfortable, NAD Eyes: No Scleral Icterus, PERRLA Ears/Nose/Mouth/Throat: Mucous Membranes Moist Neck: NL Appearance and Movements; NL JVP Respiratory: Symmetrical Chest Expansion and Respiratory Effort, - - Sporadic rhonchi in right mid and upper lobes. Clears some with cough Cardiovascular: NL Sounds; No Murmurs; No JVD, RRR, No Edema Abdominal: NL Sounds; No Tenderness; No Distention Lymphatic: No Cervical Adenopathy Extremities: No Clubbing, Cyanosis Skin: No Rash or Ulcers Neurological: Alert and Oriented x 3, NL Sensation, NL Muscle Strength and Tone Nutrition: Taking PO's Result Diagrams: 05/19/18 06:23 05/19/18 06:23 Additional Lab and Data: Laboratory Results - last 24 hr 05/18/18 05/18/18 05/18/18 22:38 22:38 22:38 WBC 24.5 H RBC 4.99 Hgb 14.8 Hct 45 MCV 89 MCH 30 MCHC 33 RDW 16 H Plt Count 180 MPV 8.4 Neut % (Auto) Not Reportable Lymph % (Auto) Not Reportable Eddy % (Auto) Not Reportable Eos % (Auto) Not Reportable Baso % (Auto) Not Reportable Absolute Neuts (auto) Not Reportable Absolute Lymphs (auto) Not Reportable Absolute Monos (auto) Not Reportable Absolute Eos (auto) Not Reportable Absolute Basos (auto) Not Reportable Absolute Nucleated RBC Not Reportable Immature Gran % 12 H Neutrophils % 70 Band Neutrophils % 12 H Lymphocytes % 12 Monocytes % 6 Nucleated RBC % Not Reportable Abs Neuts (Manual) 20.1 H Abs Lymphs (Manual) 2.94 Abs Monocytes (Manual) 1.47 H Normal RBC Morphology Normal Patient Temperature ABG pH ABG pH (Temp Correct) ABG pCO2 ABG pCO2 (Temp Corrct ABG pO2 ABG pO2 (Temp Correct ABG HCO3 ABG O2 Saturation ABG Base Excess Respiration Rate O2 Delivery Device Ventilator Type Vent Mode FiO2 Inspiratory Time PEEP Pressure Support Pressure Control EPAP IPAP BiPAP Sodium 142 Potassium 4.8 Chloride 102 Carbon Dioxide 21 L Anion Gap 19 H BUN 18 Creatinine 2.05 H Est GFR ( Amer) 42.5 Est GFR (Non-Af Amer) 35.1 BUN/Creatinine Ratio 8.8 Glucose 312 H POC Glucose (mg/dL) Hemoglobin A1c Lactic Acid 7.9 H* Calcium 9.1 Magnesium Total Bilirubin 0.60 AST 56 H ALT 61 H Alkaline Phosphatase 78 Ammonia Total Creatine Kinase Troponin I 0.07 H* Total Protein 7.5 Albumin 4.8 Globulin 2.7 Albumin/Globulin Ratio 1.8 TSH Urine Color Urine Appearance Urine pH Ur Specific [place] Urine Protein Urine Ketones Urine Blood Urine Nitrate Urine Bilirubin Urine Urobilinogen Ur Leukocyte Esterase Urine WBC (Auto) Urine RBC (Auto) Ur Squamous Epith Cells Urine Bacteria Hyaline Casts Urine Glucose Urine Opiates Screen Acetaminophen < 15 Ur Barbiturates Screen Ur Phencyclidine Scrn Ur Amphetamines Screen U Benzodiazepines Scrn Urine Cocaine Screen U Cannabinoids Screen Serum Alcohol < 10 Hepatitis B Antibody Hep Bs Antigen Hep Bs Antibody, Quant Hepatitis C Antibody Hepatitis C Ab Index HIV 1&2 Antibody Rapid 05/18/18 05/18/18 05/19/18 22:38 22:38 01:15 WBC RBC Hgb Hct MCV MCH MCHC RDW Plt Count MPV Neut % (Auto) Lymph % (Auto) Eddy % (Auto) Eos % (Auto) Baso % (Auto) Absolute Neuts (auto) Absolute Lymphs (auto) Absolute Monos (auto) Absolute Eos (auto) Absolute Basos (auto) Absolute Nucleated RBC Immature Gran % Neutrophils % Band Neutrophils % Lymphocytes % Monocytes % Nucleated RBC % Abs Neuts (Manual) Abs Lymphs (Manual) Abs Monocytes (Manual) Normal RBC Morphology Patient Temperature ABG pH 7.21 L ABG pH (Temp Correct) ABG pCO2 55 H ABG pCO2 (Temp Corrct ABG pO2 73 L ABG pO2 (Temp Correct ABG HCO3 19.8 ABG O2 Saturation 94.7 ABG Base Excess -6.4 L Respiration Rate O2 Delivery Device Ventilator Type Vent Mode FiO2 Inspiratory Time PEEP Pressure Support Pressure Control EPAP IPAP BiPAP Sodium Potassium Chloride Carbon Dioxide Anion Gap BUN Creatinine Est GFR ( Amer) Est GFR (Non-Af Amer) BUN/Creatinine Ratio Glucose POC Glucose (mg/dL) Hemoglobin A1c Lactic Acid Calcium Magnesium Total Bilirubin AST ALT Alkaline Phosphatase Ammonia Total Creatine Kinase Troponin I Total Protein Albumin Globulin Albumin/Globulin Ratio TSH Urine Color Urine Appearance Urine pH Ur Specific [place] Urine Protein Urine Ketones Urine Blood Urine Nitrate Urine Bilirubin Urine Urobilinogen Ur Leukocyte Esterase Urine WBC (Auto) Urine RBC (Auto) Ur Squamous Epith Cells Urine Bacteria Hyaline Casts Urine Glucose Urine Opiates Screen Acetaminophen Ur Barbiturates Screen Ur Phencyclidine Scrn Ur Amphetamines Screen U Benzodiazepines Scrn Urine Cocaine Screen U Cannabinoids Screen Serum Alcohol Hepatitis B Antibody Not immune A Hep Bs Antigen Nonreactive Hep Bs Antibody, Quant < 3.10 Hepatitis C Antibody Nonreactive Hepatitis C Ab Index < 0.0 HIV 1&2 Antibody Rapid Nonreactive 05/19/18 05/19/18 05/19/18 03:42 03:42 05:32 WBC RBC Hgb Hct MCV MCH MCHC RDW Plt Count MPV Neut % (Auto) Lymph % (Auto) Eddy % (Auto) Eos % (Auto) Baso % (Auto) Absolute Neuts (auto) Absolute Lymphs (auto) Absolute Monos (auto) Absolute Eos (auto) Absolute Basos (auto) Absolute Nucleated RBC Immature Gran % Neutrophils % Band Neutrophils % Lymphocytes % Monocytes % Nucleated RBC % Abs Neuts (Manual) Abs Lymphs (Manual) Abs Monocytes (Manual) Normal RBC Morphology Patient Temperature ABG pH ABG pH (Temp Correct) ABG pCO2 ABG pCO2 (Temp Corrct ABG pO2 ABG pO2 (Temp Correct ABG HCO3 ABG O2 Saturation ABG Base Excess Respiration Rate O2 Delivery Device Ventilator Type Vent Mode FiO2 Inspiratory Time PEEP Pressure Support Pressure Control EPAP IPAP BiPAP Sodium Potassium Chloride Carbon Dioxide Anion Gap BUN Creatinine Est GFR ( Amer) Est GFR (Non-Af Amer) BUN/Creatinine Ratio Glucose POC Glucose (mg/dL) Hemoglobin A1c Lactic Acid 1.1 Calcium Magnesium Total Bilirubin AST ALT Alkaline Phosphatase Ammonia Total Creatine Kinase Troponin I 0.16 H* Total Protein Albumin Globulin Albumin/Globulin Ratio TSH Urine Color Yellow Urine Appearance Cloudy Urine pH 5.0 Ur Specific [place] 1.018 Urine Protein 1+(30 mg/dl) A Urine Ketones Negative Urine Blood Negative Urine Nitrate Negative Urine Bilirubin Negative Urine Urobilinogen Negative Ur Leukocyte Esterase Negative Urine WBC (Auto) 1+(6-10/hpf) A Urine RBC (Auto) 1+(3-5/hpf) A Ur Squamous Epith Cells Present A Urine Bacteria Absent Hyaline Casts Present A Urine Glucose 1+(50 mg/dl) A Urine Opiates Screen Acetaminophen Ur Barbiturates Screen Ur Phencyclidine Scrn Ur Amphetamines Screen U Benzodiazepines Scrn Urine Cocaine Screen U Cannabinoids Screen Serum Alcohol Hepatitis B Antibody Hep Bs Antigen Hep Bs Antibody, Quant Hepatitis C Antibody Hepatitis C Ab Index HIV 1&2 Antibody Rapid 05/19/18 05/19/18 05/19/18 05:32 06:23 06:23 WBC 8.7 RBC 4.42 Hgb 13.1 L Hct 39 MCV 88 MCH 30 MCHC 34 RDW 16 H Plt Count 102 L MPV 8.1 Neut % (Auto) 89.3 Lymph % (Auto) 5.2 Eddy % (Auto) 5.2 Eos % (Auto) 0 Baso % (Auto) 0.3 Absolute Neuts (auto) 7.8 H Absolute Lymphs (auto) 0.5 L Absolute Monos (auto) 0.5 Absolute Eos (auto) 0 Absolute Basos (auto) 0 Absolute Nucleated RBC 0 Immature Gran % Neutrophils % Band Neutrophils % Lymphocytes % Monocytes % Nucleated RBC % 0 Abs Neuts (Manual) Abs Lymphs (Manual) Abs Monocytes (Manual) Normal RBC Morphology Patient Temperature ABG pH ABG pH (Temp Correct) ABG pCO2 ABG pCO2 (Temp Corrct ABG pO2 ABG pO2 (Temp Correct ABG HCO3 ABG O2 Saturation ABG Base Excess Respiration Rate O2 Delivery Device Ventilator Type Vent Mode FiO2 Inspiratory Time PEEP Pressure Support Pressure Control EPAP IPAP BiPAP Sodium 143 Potassium 4.1 Chloride 109 Carbon Dioxide 24 Anion Gap 10 BUN 16 Creatinine 1.35 H Est GFR ( Amer) 68.8 Est GFR (Non-Af Amer) 56.9 BUN/Creatinine Ratio 11.9 Glucose 115 H POC Glucose (mg/dL) Hemoglobin A1c Lactic Acid Calcium 7.8 L Magnesium 1.7 L Total Bilirubin AST ALT Alkaline Phosphatase Ammonia Total Creatine Kinase 709 H Troponin I 0.16 H* Total Protein Albumin Globulin Albumin/Globulin Ratio TSH 0.86 Urine Color Urine Appearance Urine pH Ur Specific [place] Urine Protein Urine Ketones Urine Blood Urine Nitrate Urine Bilirubin Urine Urobilinogen Ur Leukocyte Esterase Urine WBC (Auto) Urine RBC (Auto) Ur Squamous Epith Cells Urine Bacteria Hyaline Casts Urine Glucose Urine Opiates Screen Presumptive positive A Acetaminophen Ur Barbiturates Screen None detected Ur Phencyclidine Scrn None detected Ur Amphetamines Screen None detected U Benzodiazepines Scrn Presumptive positive A Urine Cocaine Screen None detected U Cannabinoids Screen None detected Serum Alcohol Hepatitis B Antibody Hep Bs Antigen Hep Bs Antibody, Quant Hepatitis C Antibody Hepatitis C Ab Index HIV 1&2 Antibody Rapid 05/19/18 05/19/18 05/19/18 06:23 07:00 10:26 WBC RBC Hgb Hct MCV MCH MCHC RDW Plt Count MPV Neut % (Auto) Lymph % (Auto) Eddy % (Auto) Eos % (Auto) Baso % (Auto) Absolute Neuts (auto) Absolute Lymphs (auto) Absolute Monos (auto) Absolute Eos (auto) Absolute Basos (auto) Absolute Nucleated RBC Immature Gran % Neutrophils % Band Neutrophils % Lymphocytes % Monocytes % Nucleated RBC % Abs Neuts (Manual) Abs Lymphs (Manual) Abs Monocytes (Manual) Normal RBC Morphology Patient Temperature ABG pH ABG pH (Temp Correct) ABG pCO2 ABG pCO2 (Temp Corrct ABG pO2 ABG pO2 (Temp Correct ABG HCO3 ABG O2 Saturation ABG Base Excess Respiration Rate O2 Delivery Device Ventilator Type Vent Mode FiO2 Inspiratory Time PEEP Pressure Support Pressure Control EPAP IPAP BiPAP Sodium Potassium Chloride Carbon Dioxide Anion Gap BUN Creatinine Est GFR ( Amer) Est GFR (Non-Af Amer) BUN/Creatinine Ratio Glucose POC Glucose (mg/dL) 101 H Hemoglobin A1c 4.8 Lactic Acid Calcium Magnesium Total Bilirubin AST ALT Alkaline Phosphatase Ammonia Total Creatine Kinase 771 H Troponin I 0.09 H* Total Protein Albumin Globulin Albumin/Globulin Ratio TSH Urine Color Urine Appearance Urine pH Ur Specific [place] Urine Protein Urine Ketones Urine Blood Urine Nitrate Urine Bilirubin Urine Urobilinogen Ur Leukocyte Esterase Urine WBC (Auto) Urine RBC (Auto) Ur Squamous Epith Cells Urine Bacteria Hyaline Casts Urine Glucose Urine Opiates Screen Acetaminophen Ur Barbiturates Screen Ur Phencyclidine Scrn Ur Amphetamines Screen U Benzodiazepines Scrn Urine Cocaine Screen U Cannabinoids Screen Serum Alcohol Hepatitis B Antibody Hep Bs Antigen Hep Bs Antibody, Quant Hepatitis C Antibody Hepatitis C Ab Index HIV 1&2 Antibody Rapid 05/19/18 05/19/18 10:26 10:35 WBC RBC Hgb Hct MCV MCH MCHC RDW Plt Count MPV Neut % (Auto) Lymph % (Auto) Eddy % (Auto) Eos % (Auto) Baso % (Auto) Absolute Neuts (auto) Absolute Lymphs (auto) Absolute Monos (auto) Absolute Eos (auto) Absolute Basos (auto) Absolute Nucleated RBC Immature Gran % Neutrophils % Band Neutrophils % Lymphocytes % Monocytes % Nucleated RBC % Abs Neuts (Manual) Abs Lymphs (Manual) Abs Monocytes (Manual) Normal RBC Morphology Patient Temperature Not Reportable ABG pH 7.31 L ABG pH (Temp Correct) Not Reportable ABG pCO2 44 ABG pCO2 (Temp Corrct Not Reportable ABG pO2 78 L ABG pO2 (Temp Correct Not Reportable ABG HCO3 21.7 ABG O2 Saturation 98.3 H ABG Base Excess -4.1 L Respiration Rate Not Reportable O2 Delivery Device 4l nc Ventilator Type Not Reportable Vent Mode Not Reportable FiO2 Not Reportable Inspiratory Time Not Reportable PEEP Not Reportable Pressure Support Not Reportable Pressure Control Not Reportable EPAP Not Reportable IPAP Not Reportable BiPAP Not Reportable Sodium Potassium Chloride Carbon Dioxide Anion Gap BUN Creatinine Est GFR ( Amer) Est GFR (Non-Af Amer) BUN/Creatinine Ratio Glucose POC Glucose (mg/dL) Hemoglobin A1c Lactic Acid Calcium Magnesium Total Bilirubin AST ALT Alkaline Phosphatase Ammonia 54 H Total Creatine Kinase Troponin I Total Protein Albumin Globulin Albumin/Globulin Ratio TSH Urine Color Urine Appearance Urine pH Ur Specific [place] Urine Protein Urine Ketones Urine Blood Urine Nitrate Urine Bilirubin Urine Urobilinogen Ur Leukocyte Esterase Urine WBC (Auto) Urine RBC (Auto) Ur Squamous Epith Cells Urine Bacteria Hyaline Casts Urine Glucose Urine Opiates Screen Acetaminophen Ur Barbiturates Screen Ur Phencyclidine Scrn Ur Amphetamines Screen U Benzodiazepines Scrn Urine Cocaine Screen U Cannabinoids Screen Serum Alcohol Hepatitis B Antibody Hep Bs Antigen Hep Bs Antibody, Quant Hepatitis C Antibody Hepatitis C Ab Index HIV 1&2 Antibody Rapid Microbiology and Other Data: Microbiology 05/19/18 03:42 Nasal Screen MRSA (PCR) - Final Nasal Mrsa Not Detected Assess/Plan/Problems-Billing Assessment: Much more awake and oriented now. States he took Klonopin and Xanax, but doesn' t know how much. Denies using any cocaine. Suspect his leukocytosis and lactic acidosis were secondary to his OD and possible seizure. May have aspiration pneumonitis, but not severe sepsis. Will continue Zosyn. - Patient Problems (1) Lactic acid acidosis Comment: - Resolved. - Initially 7.9, suspected secondary to OD and seizure? - Have been free from seizure activity. EEG ordered. (2) Elevated troponin Comment: - Trending down - Asymptomatic - Echo unchange from April 2018 (3) Migraine Comment: - Reports recent migraine is similar to usual. - Neuro exam wnl - Cont home medications (4) Cocaine use disorder Comment: - Psych consulted and patient admitted to cocaine use prior to episode that brought patient to ED. - No need for inpatient treatment per psych. Patient can continue with outpatient support and treatment when discharge (5) Sepsis Comment: - Met criteria on admission due to tachycardia and elevated wbc - Resolved (6) Aspiration pneumonitis Comment: - Concern given patient was found unresponsive in vomit - Cont Zosyn (7) Overdose Comment: - Unintential as he is not experiencing SI (8) GITA (acute kidney injury) Comment: - Resolving with IVF - Cont to monitor (9) Hyperglycemia Comment: - Resolving. Suspected secondary to trauma of OD and syncope (10) Respiratory acidosis Comment: - Secondary to unresponsive episode - Improving (11) DVT prophylaxis Comment: - SCDs and ambulation Attending: Deya Hernandez
[2018-05-19] MEDS ORDERED: CMC:Zonisamide (NF) 50 MG CAP PO SCH (21:00)
[2018-05-19] MEDS ORDERED: Melatonin 3 MG TAB PO SCH (21:00)
[2018-05-19] MEDS: Methylphenidate TAB* 10 MG PO SCH (21:42)
[2018-05-20] MEDS: ZOSYN 3.375 GM Q8H per EXTENDED INFUSION IVPB SCH ×4 (05:08→13:09)
[2018-05-20] MEDS ORDERED: Levothyroxine TAB* 50 MCG TAB PO SCH (06:00)
[2018-05-20] MEDS: Methylphenidate TAB* 10 MG PO SCH ×2 (07:38→15:13)
[2018-05-20] MEDS ORDERED: Allopurinol TAB* 100 MG PO SCH (09:00)
[2018-05-20] MEDS ORDERED: Pantoprazole TAB * 40 MG TAB PO SCH (09:00)
[2018-05-20] MEDS ORDERED: Escitalopram * 5 MG TAB PO SCH (09:00)
[2018-05-20] MEDS ORDERED: Aspirin EC TAB* 81 MG TAB.EC PO SCH (09:00)
[2018-05-20] MEDS: NS 0.9% 1000 ML** 1,000 ML IV SCH (11:08)
[2018-05-20 15:10] VITALS: BP 165/62
--- NOTE | 2018-05-21 00:21 | DS ---
CC: Dr. Brady * DISCHARGE SUMMARY: DATE OF ADMISSION: 05/19/18 DATE OF DISCHARGE: 05/20/18 PRINCIPAL DISCHARGE DIAGNOSIS: Drug overdose. SECONDARY DISCHARGE DIAGNOSES: 1. Elevated troponin. 2. Sepsis. 3. Aspiration pneumonitis. 4. Acute kidney injury. MEDICATIONS AT THE TIME OF DISCHARGE: 1. Clindamycin 300 mg t.i.d. for 5 more days. 2. Aspirin 81 mg daily. 3. Metoprolol 25 mg b.i.d. 4. Flexeril 10 mg t.i.d. p.r.n. 5. Zonegran 200 mg q.h.s. 6. Melatonin 3 mg q.h.s. 7. Ritalin 20 mg t.i.d. 8. Synthroid 50 mcg daily. 9. Lexapro 5 mg daily. 10. Suboxone 1 film daily. 11. Maxalt p.r.n. migraine. 12. Allopurinol 1 tab daily. 13. Klonopin 0.5 mg daily p.r.n. 14. Prilosec 20 mg daily. PHYSICAL EXAM AT THE TIME OF DISCHARGE: Temperature 97.8, heart rate 65, respiratory rate 20, pulse ox 98% on room air, blood pressure 137/78. General: Alert, well-appearing young man, in no distress. He is visiting with his father. HEENT: Pupils are 3 mm bilaterally and reactive to light. Oral mucosa is moist. Neck: No JVP. No cervical adenopathy. Chest: Regular rate and rhythm. No murmurs. BMI is nondisplaced. Lungs are clear bilaterally. Abdomen is soft, nontender, nondistended. No guarding or rebound. No CVA tenderness. Extremities: No rashes, edema, or lacerations. Neurologic: He is oriented x3. His strength is 5/5 in all extremities. His gait is normal. He is cooperative. Otherwise cognition is intact. PERTINENT LABS ON THIS ADMISSION: Troponin was 0.16, 0.16, and 0.09. HOSPITAL COURSE BY PROBLEM: 1. Overdose. Mr. Brooks is a 47-year-old man with history of polysubstance abuse , who had been sober for 18 months. He has been active in and is very proud of his sobriety; however, relapsed on the day of admission and admits to using cocaine given to him by a friend as well as opiates and was found unresponsive, prone by his father in a pool of vomit. He was admitted to the ICU for close monitoring; however, he was able to protect his airway. Of note, he also received Narcan in the field with some response. Several hours later when he was more awake, he admitted to [facility]. This was an unintentional overdose and he is very regretful that he relapsed. Dr. Bird saw him given concern at presentation for an intentional overdose; however, Mr. Brooks very clearly denied any intentional overdose and looks forward to returning to and has arranged his sponsor already. He is being discharged under the care of his father and has very clear train of thought and play on at the time of discharge. 2. Elevated troponin. This can be explained likely by his overdose. He had a clean left heart cath last year prior to his aortic valve replacement. He had an echocardiogram on this admission that showed that his aortic valve replacement is working and his EKG showed no evidence of ischemia. 3. Aspiration pneumonitis. Mr. Brooks was found in vomit and met sepsis criteria at admission, so he was started on Zosyn, I am just starting him on 5 days of clindamycin. DISPOSITION: Mr. Brooks is being discharged on 05/20/18 under the care of his father. He is to follow up with his primary care physician, Dr. Brady; his project reservoir engineer, Dr. Loyd and his neurologist, Dr. Posey as soon as he is able. CONDITION AT THE TIME OF DISCHARGE: Stable. TIME SPENT: Forty five minutes was spent on this discharge. [id number]/[facility] #: [id number] SIMONE
--- NOTE | 2018-05-21 00:29 | EEG ---
ELECTROENCEPHALOGRAPHY REPORT: DATE OF STUDY: 05/20/18 - ROOM #440 REFERRING PROVIDER: Lin Rucker NP LOCATION: He is an inpatient in [facility]. CLINICAL PROBLEM: Episode of unresponsiveness and was found on the floor with vomit . He was given Narcan and became combative. MEDICATIONS: Consist of: 1. Rizatriptan. 2. Klonopin. 3. Zonegran. 4. Protonix. 5. Ritalin. 6. Lexapro. 7. Compazine. 8. Zosyn. REPORT: This 16-channel EEG is remarkable for background rhythms consisting of a reasonably well-formed alpha rhythm in the posterior derivations at about 9 cycles per second. Low to moderate voltage bifrontal beta rhythms are noted. The patient is clinically awake. Activation procedures are not attempted. There are no clinical events. The patient drowses, but does not sleep. There are no focal, lateralized, or epileptiform abnormalities. CLINICAL IMPRESSION: Normal awake and drowsy EEG. [id number]/[facility] #: [id number] [facility]
== END 2018-05-20 15:05 | disposition home or self-care (01) | DRG 812 ==
LOC: ED 22:25 → ICU 05-19 00:05 → MEDTELE 05-19 18:04
PROVIDERS: ADMIT Internal Medicine; ATTEND Internal Medicine
PROC: 4A10X4Z Monitoring of Central Nervous Electrical Activity, External Approach (ICD-10-PCS; principal; 2018-05-20)
DX: T42.4X1A Poisoning by benzodiazepines, accidental (unintentional), initial encounter (principal); A41.9 Sepsis, unspecified organism; R65.20 Severe sepsis without septic shock; J69.0 Pneumonitis due to inhalation of food and vomit; N17.9 Acute kidney failure, unspecified; E87.2 Acidosis; Z68.41 Body mass index [BMI] 40.0-44.9, adult; R74.8 Abnormal levels of other serum enzymes; G47.30 Sleep apnea, unspecified; E78.00 Pure hypercholesterolemia, unspecified; F41.0 Panic disorder [episodic paroxysmal anxiety]; E66.9 Obesity, unspecified; G47.33 Obstructive sleep apnea (adult) (pediatric); R73.9 Hyperglycemia, unspecified; G43.909 Migraine, unspecified, not intractable, without status migrainosus; F14.90 Cocaine use, unspecified, uncomplicated; T45.0X1A Poisoning by antiallergic and antiemetic drugs, accidental (unintentional), initial encounter; Z83.79 Family history of other diseases of the digestive system; Z95.2 Presence of prosthetic heart valve; Z80.7 Family history of other malignant neoplasms of lymphoid, hematopoietic and related tissues; Z79.82 Long term (current) use of aspirin; Y92.039 Unspecified place in apartment as the place of occurrence of the external cause; Z87.891 Personal history of nicotine dependence; Z56.0 Unemployment, unspecified
CPT/HCPCS: 36415; 36600; 70450; 71045; 72125; 80048; 80053; 80307; 80320; 80329; 81003; 81015; 82140; 82550; 82803; 83036; 83605; 83735; 84443; 84484; 85025; 86703; 86706; 86803; 87040; 87086; 87340; 87641; 93005; 93306; 95816; 99284; A9270-GY; C8929; G0480; J2543; J3475